=== PATIENT | female | born 1990 | race African-American/Black ===

== ENCOUNTER 2016-07-07 13:10 | Emergency (ER) | payer OTHER ==
[~2016-07-07] VITALS: Ht 160 cm; Wt 63.5 kg
[~2016-07-07 13:10] MED LIST: CIPR500T94 PO; HYDR-971 PO; PENI500T PO; PROM25TA10 PO; TRAM-29 PO
[2016-07-07 13:20] VITALS: BP 112/60
[2016-07-07] MEDS ORDERED: HYDR-971 PO (13:48)
[2016-07-07] MEDS ORDERED: AMOX500C PO (13:48)
--- NOTE | 2016-07-07 13:48 | PHYS DOC ---
Past Medical History Past Medical History: Other Additional Past Medical Histor: ULCERATIVE COLITIS, Dental Caries Past Surgical History: , Tubal ligation Additional Past Surgical Histo: X 3 Alcohol Use: None Drug Use: Marijuana Adult General Chief Complaint Chief Complaint: DENTAL PROBLEM [facility] HPI Patient is a 25 year old female presents emergency room with complaint of jaw pain and swelling is been ongoing for greater than 1 week. Patient states that she went to the dentist office for follow-up and was advised to come to the emergency department since she's fully open her mouth. Patient states that the dentist advised her to come to the ER for further evaluation and then to return to the dental office by 2 PM after she received a prescription for antibiotics and pain medicine. Review of Systems Review of Systems Constitutional: Denies fever or chills [] Eyes: Denies change in visual acuity, redness, or eye pain [] HENT: Denies nasal congestion or sore throat [] Respiratory: Denies cough or shortness of breath [] Cardiovascular: No additional information not addressed in HPI [] GI: Denies abdominal pain, nausea, vomiting, bloody stools or diarrhea [] : Denies dysuria or hematuria [] Musculoskeletal: Denies back pain or joint pain [] Integument: Denies rash or skin lesions [] Neurologic: Denies headache, focal weakness or sensory changes [] Endocrine: Denies polyuria or polydipsia [] Allergies Allergies Allergies Coded Allergies Type Severity Reaction Last Updated Verified No Known Drug Allergies 09/10/13 No Physical Exam Physical Exam Constitutional: Well developed, well nourished, no acute distress, non-toxic appearance. [] HENT: Normocephalic, atraumatic, bilateral external ears normal, oropharynx moist, no oral exudates, nose normal. There is no hot potato speech or trismus. Posterior oropharynx is without erythema, tonsillar swelling, exudate or plaques , peritonsillar swelling or uvular deviation. Patient does have gingival inflammation to the left mandibular gum line without gingival abscess. She does have dental caries and very stages of decay. Eyes: PERRLA, EOMI, conjunctiva normal, no discharge. [] Neck: Normal range of motion, no tenderness, supple, no stridor. [] Cardiovascular:Heart rate regular rhythm, no murmur [] Lungs & Thorax: Bilateral breath sounds clear to auscultation [] Abdomen: Bowel sounds normal, soft, no tenderness, no masses, no pulsatile masses. [] Skin: Warm, dry, no erythema, no rash. [] Back: No tenderness, no CVA tenderness. [] Extremities: No tenderness, no cyanosis, no clubbing, ROM intact, no edema. [] Neurologic: Alert and oriented X 3, normal motor function, normal sensory function, no focal deficits noted. [] Psychologic: Affect normal, judgement normal, mood normal. [] Current Patient Data Vital Signs Vital Signs Date Time Temp Pulse Resp B/P Pulse Ox O2 Delivery O2 Flow Rate FiO2 07/07/16 13:20 98.0 77 19 99 Room Air 98.0 EKG EKG [] Radiology/Procedures Radiology/Procedures [] Course & Med Decision Making Course & Med Decision Making Pertinent Labs and Imaging studies reviewed. (See chart for details) [] Dragon Disclaimer Dragon Disclaimer This electronic medical record was generated, in whole or in part, using a voice recognition dictation system. Departure Departure Impression: Primary Impression: Dental caries Disposition: 01 HOME, SELF-CARE Condition: GOOD Referrals: NO PCP (PCP) Patient Instructions: Dental Caries-Brief Additional Instructions: 1. There is no evidence of peritonsillar abscess. 2. Take the medication as prescribed. 3. Review these discharge instructions for self-care and reasons to return to the emergency department. 4. Return to see the dentist for management of your ongoing dental issues. Scripts Amoxicillin 500 Mg Capsule1 Cap PO TID #30 CAP Prov:MIRNA PONCE 07/07/16 Hydrocodone/Apap 5-325 ([place] 5-325 Tablet)1 Each Tablet1 Tab PO PRN Q6HRS PRN PAIN #10 TAB Prov:MIRNA PONCE 07/07/16 MIRNA PONCE Jul 07, 2016 13:48
== END 2016-07-07 13:50 | disposition home or self-care (01) ==
LOC: ER 13:10
DX: K02.9 Dental caries, unspecified (principal); F12.10 Cannabis abuse, uncomplicated
CPT/HCPCS: 99283

== ENCOUNTER 2016-09-25 13:37 | Inpatient (IN) | payer OTHER ==
[~2016-09-25] VITALS: Ht 160 cm; Wt 65.3 kg
[~2016-09-25 13:37] MED LIST changes: +AMOX500C PO; +AMOX875T PO; +FLUC150T PO; +TOBR5DRO6 OD
[2016-09-25] MEDS ORDERED: IV NORMAL SALINE 1000ML BAG 1,000 ML IV SCH ×2 (14:17→18:06)
[2016-09-25] MEDS ORDERED: KETOROLAC 15 MG/ML VIAL. IV ONE (14:30)
[2016-09-25] MEDS ORDERED: ONDANSETRON PF 4 MG/2 ML VIAL. IV ONE (14:30)
[2016-09-25 15:08] LABS: BILIRUBIN,URINE SMALL (NEG); GLUCOSE,URINE NEGATIVE (NEG); NITRITE,URINE POSITIVE (NEG); PH,URINE 6.5; PROTEIN,URINE 30 mg/dL (NEG-TRACE); UROBILINOGEN,URINE 0.2 mg/dL (0.2 mg/dL)
[2016-09-25 15:13] LABS: BARBITURATES NEG (NEG); BENZODIAZEPINES NEG (NEG); CANNABINOIDS POS (NEG); COCAINE NEG (NEG); ETHANOL, URINE NEG (NEG); METHADONE NEG (NEG); OPIATES NEG (NEG); PHENCYCLIDINE NEG (NEG)
[2016-09-25 15:14] LABS: BACTERIA,URINE MANY /HPF (0-FEW); RBC,URINE 0 /HPF (0-2); SQUAMOUS EPITHELIAL CELL,UR MANY /LPF
[2016-09-25] MEDS ORDERED: HALOPERIDOL LACTATE 5 MG/ML VIAL. IVP ONE (15:30)
[2016-09-25 16:06] LABS: BASO % 1 % (0-3); EOS % 0 % (0-3); HEMATOCRIT 34.6 % (36.0-47.0); HEMOGLOBIN 10.7 g/dL (12.0-15.5); LYMPH # 0.9 x10^3/uL (1.0-4.8); LYMPH % 16 % (24-48); MEAN CORPUSCULAR HEMOGLOBIN 26 pg (25-35); MEAN CORPUSCULAR HGB CONC 31 g/dL (31-37); MEAN CORPUSCULAR VOLUME 85 fL (79-100); MONO % 3 % (0-9); NEUT % 80 % (31-73); PLATELET COUNT 241 x10^3/uL (140-400); RED BLOOD COUNT 4.07 x10^6/uL (3.50-5.40); RED CELL DISTRIBUTION WIDTH 16.8 % (11.5-14.5); WHITE BLOOD COUNT 5.4 x10^3/uL (4.0-11.0)
[2016-09-25 16:24] LABS: CALCIUM 9.1 mg/dL (8.5-10.1); CREATININE 0.8 mg/dL (0.6-1.0); GFR 104.1; TOTAL BILIRUBIN 0.4 mg/dL (0.2-1.0); TOTAL PROTEIN 7.9 g/dL (6.4-8.2)
[2016-09-25 16:27] LABS: POTASSIUM 2.8 mmol/L (3.5-5.1)
--- NOTE | 2016-09-25 16:29 | ED.ADGEN ---
Past Medical History Past Medical History: Other Additional Past Medical Histor: ULCERATIVE COLITIS, Dental Caries Past Surgical History: , Tubal ligation Additional Past Surgical Histo: X 3 Alcohol Use: None Drug Use: Marijuana Adult General Chief Complaint Chief Complaint: ABDOMINAL PAIN HPI HPI Patient is a 25 year old woman, history of ulcerative colitis, who presents the emergency department with a complaint of abdominal pain over the past 2 days. States she is experiencing abdominal cramping, nausea, vomiting and diarrhea. Denies any urinary complaints, denies any possibility of . No discharge or drainage from the vagina. Multiple episodes of loose watery stool. No blood in stool or emesis. Food and fluid noted, patient is diaphoretic upon arrival to the emergency department, complaining of significant cramping abdominal pain. Has not taken any medications at home for her symptoms. Denies any drugs or alcohol, states that she does smoke cigarettes. Denies any weakness emesis or tingling, any similar symptoms previously. Review of Systems Review of Systems Constitutional: Denies fever or chills. [] Eyes: Denies change in visual acuity. [] HENT: Denies nasal congestion or sore throat. [] Respiratory: Denies cough or shortness of breath. [] Cardiovascular: Denies chest pain or edema. [] GI: Denies abdominal pain, nausea, vomiting, bloody stools or diarrhea. [] : Denies dysuria. [] Musculoskeletal: Denies back pain or joint pain. [] Integument: Denies rash. [] Neurologic: Denies headache, focal weakness or sensory changes. [] Endocrine: Denies polyuria or polydipsia. [] Lymphatic: Denies swollen glands. [] Psychiatric: Denies depression or anxiety. [] Current Medications Current Medications Current Medications Medications (Trade) Dose Ordered Sig/Sharon Start Time Stop Time Status Last Admin Dose Admin Ceftriaxone Sodium (Rocephin 1gm Ivpb For Omni) 50 ml @ 100 mls/hr 1X ONCE 09/25/16 17:15 09/25/16 17:44 DC Haloperidol Lactate (Haldol) 5 mg 1X ONCE 09/25/16 15:30 09/25/16 15:31 DC 09/25/16 15:39 5 MG Info 1 each 1 each PRN DAILY PRN 09/25/16 17:15 4/11/17 17:14 Iohexol (Omnipaque 300 Mg/ml) 75 ml 1X ONCE 09/25/16 17:00 09/25/16 17:04 DC 09/25/16 17:50 75 ML Ketorolac Tromethamine (Toradol) 10 mg 1X ONCE 09/25/16 14:30 09/25/16 14:31 DC 09/25/16 14:44 10 MG Ondansetron HCl (Zofran) 4 mg 1X ONCE 09/25/16 14:30 09/25/16 14:31 DC 09/25/16 14:44 4 MG Potassium Chloride 40 meq 40 meq 1X ONCE 09/25/16 16:30 09/25/16 16:34 DC 09/25/16 17:03 40 MEQ Potassium Chloride/Dextrose/ Sod Cl (KCl 40 Meq In D5%-1/2ns Iv Racquel) 1,000 ml @ 80 mls/hr 1X ONCE 09/25/16 16:45 09/26/16 05:14 09/25/16 17:04 80 MLS/HR Sodium Chloride 1,000 ml @ 1,000 mls/hr 1X ONCE 09/25/16 16:45 09/25/16 17:44 DC 09/25/16 17:04 1,000 MLS/HR Sodium Chloride (Iv Sodium Chloride 0.9% 1000ml Bag) 1,000 ml @ 1,000 mls/hr Q1H 09/25/16 14:17 09/25/16 15:16 DC 09/25/16 14:45 1,000 MLS/HR Allergies Allergies Allergies Coded Allergies Type Severity Reaction Last Updated Verified No Known Drug Allergies 09/10/13 No Physical Exam Physical Exam Constitutional: Well developed, well nourished, diaphoretic, appears uncomfortable. Vomiting clear fluid in the emergency department. HENT: Normocephalic, atraumatic, bilateral external ears normal, oropharynx moist, no oral exudates, nose normal. [] Eyes: PERRLA, EOMI, conjunctiva normal, no discharge. [] Neck: Normal range of motion, no tenderness, supple, no stridor. [] Cardiovascular:Heart rate regular rhythm, no murmur, S1, S2, no rubs or gallops. [] Lungs & Thorax: Bilateral breath sounds clear to auscultation, no wheezing, rhonchi, rales. No chest or crepitus or tenderness. [] Abdomen: Bowel sounds normal, soft, tenderness palpation in the epigastric region, periumbilical and lower quadrants, with active bowel sounds, no rebound , rigidity, no guarding, no masses, no pulsatile masses. [] Skin: Warm, patient diaphoretic, appears uncomfortable, no erythema, no rash. [ ] Back: No tenderness, no CVA tenderness. [] Extremities: No tenderness, no cyanosis, no clubbing, ROM intact, no edema. [] Neurologic: Alert and oriented X 3, normal motor function, normal sensory function, no focal deficits noted. [] Psychologic: Affect normal, judgement normal, mood normal. [] Current Patient Data Vital Signs Vital Signs Date Time Temp Pulse Resp B/P Pulse Ox O2 Delivery O2 Flow Rate FiO2 09/25/16 13:41 98.2 60 22 116/61 100 Room Air 98.2 Lab Values Laboratory Tests Test 09/25/16 13:50 09/25/16 15:55 Urine Collection Type Unknown Urine Color Maria D Urine Clarity Cloudy Urine pH 6.5 Urine Specific [place] >=1.030 Urine Protein 30mg/dL (NEG-TRACE) Urine Glucose (UA) Negativemg/dL (NEG) Urine Ketones (Stick) Tracemg/dL (NEG) Urine Blood Negative (NEG) Urine Nitrite Positive (NEG) Urine Bilirubin Small (NEG) Urine Urobilinogen Dipstick 0.2mg/dL (0.2 mg/dL) Urine Leukocyte Esterase Small (NEG) Urine RBC 0/HPF (0-2) Urine WBC 5-10/HPF (0-4) Urine Squamous Epithelial Cells Many/LPF Urine Bacteria Many/HPF (0-FEW) Urine Mucus Marked/LPF Urine Opiates Screen Neg (NEG) Urine Methadone Screen Neg (NEG) Urine Barbiturates Neg (NEG) Urine Phencyclidine Screen Neg (NEG) Urine Amphetamine/Methamphetamine Neg (NEG) Urine Benzodiazepines Screen Neg (NEG) Urine Cocaine Screen Neg (NEG) Urine Cannabinoids Screen Pos (NEG) Urine Ethyl Alcohol Neg (NEG) White Blood Count 5.4x10^3/uL (4.0-11.0) Red Blood Count 4.07x10^6/uL (3.50-5.40) Hemoglobin 10.7g/dL (12.0-15.5) L Hematocrit 34.6% (36.0-47.0) L Mean Corpuscular Volume 85fL (79-100) Mean Corpuscular Hemoglobin 26pg (25-35) Mean Corpuscular Hemoglobin Concent 31g/dL (31-37) Red Cell Distribution Width 16.8% (11.5-14.5) H Platelet Count 241x10^3/uL (140-400) Neutrophils (%) (Auto) 80% (31-73) H Lymphocytes (%) (Auto) 16% (24-48) L Monocytes (%) (Auto) 3% (0-9) Eosinophils (%) (Auto) 0% (0-3) Basophils (%) (Auto) 1% (0-3) Neutrophils # (Auto) 4.3x10^3uL (1.8-7.7) Lymphocytes # (Auto) 0.9x10^3/uL (1.0-4.8) L Monocytes # (Auto) 0.2x10^3/uL (0.0-1.1) Eosinophils # (Auto) 0.0x10^3/uL (0.0-0.7) Basophils # (Auto) 0.0x10^3/uL (0.0-0.2) Sodium Level 142mmol/L (136-145) Potassium Level 2.8mmol/L (3.5-5.1) *L Chloride Level 107mmol/L (98-107) Carbon Dioxide Level 20mmol/L (21-32) L Anion Gap 15 (6-14) H Blood Urea Nitrogen 5mg/dL (7-20) L Creatinine 0.8mg/dL (0.6-1.0) Estimated GFR (Cockcroft-Gault) 104.1 BUN/Creatinine Ratio 6 (6-20) Glucose Level 128mg/dL (70-99) H Lactic Acid Level 3.6mmol/L (0.4-2.0) H Calcium Level 9.1mg/dL (8.5-10.1) Total Bilirubin 0.4mg/dL (0.2-1.0) Aspartate Amino Transferase (AST) 16U/L (15-37) Alanine Aminotransferase (ALT) 18U/L (14-59) Alkaline Phosphatase 54U/L (46-116) Total Protein 7.9g/dL (6.4-8.2) Albumin 4.0g/dL (3.4-5.0) Albumin/Globulin Ratio 1.0 (1.0-1.7) Lipase 68U/L (73-393) L Laboratory Tests 09/25/16 15:55 Laboratory Tests 09/25/16 15:55 EKG EKG EC: Sinus rhythm, heart rate 53 beats minute, QTC of 372, OK 180, QRS of 82, mild baseline artifact noted, no ST elevations or depressions, no evidence of acute ST abnormalities. As interpreted by me. Radiology/Procedures Radiology/Procedures [] [facility] [address] [place] [address] IMAGING REPORT Signed PATIENT: VLAD BOTELLO ACCOUNT: [id number] : 1990 LOCATION: [address] [place] [address] AGE: 25 SEX: F EXAM STATUS: ADM IN ORD. PHYSICIAN: ANIBAL ALMANZA DO REASON: abd pain/n/v/d PROCEDURE: CT ABD PELV W/ IV CONTRST ONLY PROCEDURE CT abdomen and pelvis with IV contrast 09/25/2016. HISTORY Pain with nausea, vomiting and diarrhea. TECHNIQUE CT images were made through the abdomen and pelvis using an infusion of 75 milliliters an Omnipaque 300. Exposure: One or more of the following individualized dose reduction techniques were utilized for this exam: 1. Automated exposure control. 2. Adjustment of the mA and/or kV according to patient size. 3. Use of iterative reconstruction technique. COMPARISON 07/15/2013. FINDINGS The lung bases are clear. The liver and spleen are homogeneous in density and normal in configuration. Both kidneys enhance with contrast. There is no apparent mass or obstruction. The adrenal glands and pancreas appear normal. No retroperitoneal or mesenteric adenopathy is seen. There is no apparent abdominal soft tissue mass or obvious inflammatory process. Evaluation is limited some by lack of intra-abdominal fat and lack of oral contrast. Images through the pelvis show no apparent abnormality of the distal ureters or bladder. No pelvic or inguinal adenopathy is seen. There is probably a small left ovarian cyst. The uterus and adnexal structures otherwise appear normal for age. There is a trace of free fluid in the cul-de-sac on the right. There is no separate pelvic mass or clear-cut inflammatory process. The appendix is not clearly discerned. There are no obvious pericecal inflammatory changes, although evaluation is limited by the lack of adjacent fat. IMPRESSION Minimal free fluid in the pelvis, likely physiologic. No identified acute abnormality, with limitations of the exam as discussed above. Electronically signed by: Regis Anderson (Sep 25, 2016 18:10:01) DICTATED and SIGNED BY: REGIS ANDERSON Jr, MD DATE: 09/25/161809 CC: ANIBAL ALMANZA DO; NO PCP; EMY ASKEW MD ~ Course & Med Decision Making Course & Med Decision Making Pertinent Labs and Imaging studies reviewed. (See chart for details) Patient with repetitive episodes of vomiting in the ED, diarrhea, and significant diaphoresis stated. Laboratory studies reveal a potassium of 2.8, and a lactic acidosis of 3.6. Urinalysis is negative for , positive for nitrates, bacteria, and does BCs. Patient is receiving IV fluids in the emergency department, although antiemetics and pain medication. Is agreeable to receiving imaging of the abdomen, along with oral and IV repletion of her potassium. Patient received Haldol in addition to Zofran and Toradol in the ED, with improvement of her symptoms. Delay in receiving laboratory studies, as there is difficult placing patient's IV access. Stool culture sent, including C. difficile, although patient has no history with recent exposures or inability use. Patient initiated on ceftriaxone for urinary findings. Symptoms improved after receiving medications as stated, but remained very nauseous, was able tolerate by mouth potassium repletion. Is continuing to receive IV repletion. CT of abdomen and pelvis reveals small amount of free fluid considered physiologic in the abdomen, no evidence of inflammation obstruction or other concerning findings. Did discuss findings as above patient, she is agreeable for admission to the hospital for potassium repletion, symptom management and monitoring. Findings as above discussed with Dr. Askew of internal medicine, patient accepted to her service as a full admission to the medical surgical floor, with plan as above. Bridge orders entered per discussion. Dragon Disclaimer Dragon Disclaimer This electronic medical record was generated, in whole or in part, using a voice recognition dictation system. Departure Impression: Primary Impression: Urinary tract infection Additional Impressions: Abdominal pain Lactic acidosis Dehydration Disposition: ADMITTED INPATIENT Admitting Physician: Emy Askew Condition: IMPROVED Problem Qualifiers ANIBAL ALMANZA DO Sep 25, 2016 16:29
[2016-09-25] MEDS ORDERED: POTASSIUM CHLORIDE 20 MEQ/15 ML ORAL LIQUID. PO ONE (16:30)
[2016-09-25] MEDS ORDERED: POTASSIUM CL 40MEQ D5-0.45NACL 1,000 ML IV ONE (16:45)
[2016-09-25] MEDS ORDERED: IV NORMAL SALINE 1000ML BAG 1,000 ML IV ONE (16:45)
[2016-09-25] MEDS ORDERED: IOHEXOL 300 MG/ML 75 ML VIAL IV ONE (17:00)
[2016-09-25] MEDS ORDERED: CONTRAST GIVEN MC PRN (17:15)
[2016-09-25] MEDS ORDERED: CEFTRIAXONE 1GM IVPB FOR OMNI 50 ML IV ONE (17:15)
[2016-09-25] MEDS ORDERED: FENTANYL PF 100 MCG/2 ML VIAL. IV PRN ×2 (17:30→18:00)
[2016-09-25] MEDS ORDERED: LORAZEPAM 1 MG TABLET. PO PRN (18:00)
[2016-09-25] MEDS ORDERED: ONDANSETRON PF 4 MG/2 ML VIAL. IV PRN ×2 (18:00→18:15)
[2016-09-25] MEDS ORDERED: DIPHENHYDRAMINE HCL 25 MG CAPSULE PO PRN (18:00)
[2016-09-25] MEDS ORDERED: LORAZEPAM 2 MG/ML VIAL. IV PRN (18:00)
[2016-09-25] MEDS ORDERED: PROCHLORPERAZINE 10 MG/2 ML VIAL. IV PRN (18:00)
--- NOTE | 2016-09-25 18:11 | RAD ---
PROCEDURE CT abdomen and pelvis with IV contrast 09/25/2016. HISTORY Pain with nausea, vomiting and diarrhea. TECHNIQUE CT images were made through the abdomen and pelvis using an infusion of 75 milliliters an Omnipaque 300. Exposure: One or more of the following individualized dose reduction techniques were utilized for this exam: 1. Automated exposure control. 2. Adjustment of the mA and/or kV according to patient size. 3. Use of iterative reconstruction technique. COMPARISON 07/15/2013. FINDINGS The lung bases are clear. The liver and spleen are homogeneous in density and normal in configuration. Both kidneys enhance with contrast. There is no apparent mass or obstruction. The adrenal glands and pancreas appear normal. No retroperitoneal or mesenteric adenopathy is seen. There is no apparent abdominal soft tissue mass or obvious inflammatory process. Evaluation is limited some by lack of intra-abdominal fat and lack of oral contrast. Images through the pelvis show no apparent abnormality of the distal ureters or bladder. No pelvic or inguinal adenopathy is seen. There is probably a small left ovarian cyst. The uterus and adnexal structures otherwise appear normal for age. There is a trace of free fluid in the cul-de-sac on the right. There is no separate pelvic mass or clear-cut inflammatory process. The appendix is not clearly discerned. There are no obvious pericecal inflammatory changes, although evaluation is limited by the lack of adjacent fat. IMPRESSION Minimal free fluid in the pelvis, likely physiologic. No identified acute abnormality, with limitations of the exam as discussed above. Electronically signed by: Samuel Anderson (Sep 25, 2016 18:10:01)
[2016-09-25] MEDS ORDERED: ACETAMINOPHEN 325 MG TABLET. PO PRN (18:15)
[2016-09-25] MEDS: MORPHINE SULFATE 4 MG/ML DISP.SYRIN. IV PRN ×2 (18:27→22:41)
[2016-09-25] MEDS: IV NORMAL SALINE 1000ML BAG 1,000 ML IV SCH (19:00)
[2016-09-25 20:00] VITALS: BP 138/87
[2016-09-25 23:00] VITALS: BP 141/82
[2016-09-26 03:00] VITALS: BP 139/81
[2016-09-26] MEDS: MORPHINE SULFATE 4 MG/ML DISP.SYRIN. IV PRN (04:39)
[2016-09-26] MEDS: IV NORMAL SALINE 1000ML BAG 1,000 ML IV SCH (06:08)
--- NOTE | 2016-09-26 06:11 | EKG ---
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
[2016-09-26 07:15] VITALS: BP 127/70
[2016-09-26 07:38] LABS: CALCIUM 9.2 mg/dL (8.5-10.1); CREATININE 0.8 mg/dL (0.6-1.0); GFR 103.3; POTASSIUM 3.2 mmol/L (3.5-5.1)
[2016-09-26] MEDS ORDERED: hydrALAZINE 20 MG/ML VIAL. IVP PRN (09:15)
[2016-09-26] MEDS ORDERED: ALBUTEROL SULFATE 2.5 MG/3 ML NEBU. NEB PRN (09:15)
[2016-09-26] MEDS ORDERED: ACETAMINOPHEN 325 MG TABLET. PO PRN (09:15)
[2016-09-26] MEDS ORDERED: ONDANSETRON PF 4 MG/2 ML VIAL. IV PRN (09:15)
--- NOTE | 2016-09-26 09:54 | RAD ---
Abdomen series with chest, 3 views, 09/25/2016: History: Abdominal pain There is only a small amount of gas in the GI tract. No dilated bowel loops are seen. No free air is evident in the abdomen. A lower pelvic calcifications on the left is probably a phlebolith. The heart size is normal. The lungs are clear. There is no evidence of pleural fluid. IMPRESSION: No acute abdominal abnormality is detected.
[2016-09-26 10:45] VITALS: BP 138/81
--- NOTE | 2016-09-26 10:47 | HP ---
ADMIT DATE: 09/26/2016 CHIEF COMPLAINT: Abdominal pain, diarrhea, nausea, vomiting. HISTORY OF PRESENT ILLNESS: A 26-year-old -[place] female with prior history of ulcerative colitis, presented to the ER with complaints of abdominal pain, nausea, vomiting and diarrhea for nearly 2 days. Initially symptoms started like vomiting, later she developed diarrhea too. She denies any sick contacts or travel history and also denies any possibility of . She was diagnosed with ulcerative colitis at [facility]; however, she was not taking any medications. After coming to the hospital, her nausea has been improving; however, the patient is still having watery bowel movements. She denies any fever, chills or denies any substance abuse. She used to smoke cigarettes, but she stopped after she was diagnosed with ulcerative colitis. PAST MEDICAL HISTORY: Ulcerative colitis, dental caries. PAST SURGICAL HISTORY: and tubal ligation. PERSONAL HISTORY: No smoking, no alcohol, THC sometimes. FAMILY HISTORY: No ulcerative colitis in the family. ALLERGIES: NKDA. REVIEW OF SYSTEMS: CONSTITUTIONAL: No fever or chills. EYES: No recent vision changes. SKIN: No rash or itching. CARDIOVASCULAR: No chest pain, syncope, palpitations or edema. RESPIRATORY: No shortness of breath, cough. GASTROINTESTINAL: Nausea, vomiting and diarrhea. Denies any hematochezia or hematemesis. NEUROLOGICAL: No headache, paralysis. ENDOCRINOLOGIC: No cold or heat intolerance. GENITOURINARY: No burning with urination, no urgency. MUSCULOSKELETAL: No back pain or joint pain. LYMPHATICS: No enlarged nodes. PSYCHIATRIC: No anxiety or depression. PHYSICAL EXAM: VITAL SIGNS: Temperature 98.2, pulse is 61, blood pressure 141/82 and pulse ox 100% on room air. GENERAL: No apparent distress. HEENT: Head normocephalic, atraumatic. NECK: Supple. LUNGS: Clear to auscultation. HEART: Regular rate and rhythm; S1, S2 present; pulses intact. ABDOMEN: Soft, nontender. No organomegaly. Positive bowel sounds. EXTREMITIES: No cyanosis or edema. NEUROLOGIC: Normal speech and normal tone; alert and oriented. PSYCHIATRIC: Normal affect, normal mood. SKIN: No ulceration. LABORATORY DATA: WBC 5.4, hemoglobin 10.7, MCHC 71, platelets 241, ESR is 10. Chemistry: Sodium is 142, potassium is 2.8, down to 3.2; carbon dioxide 20, anion gap 15, BUN is 5 and glucose 178, lipase 68. Urine clarity cloudy, pH is 6.5, specific gravity more than 1.030, glucose negative, ketones trace, nitrites positive, urobilinogen 0.2, esterase is small. Toxicology positive for THC, cannabinoids. IMAGING STUDIES: Abdomen and pelvis CT showed minimal free fluid in the pelvis, likely physiologic. No evidence for acute abnormality or limitations of the exam noted. ASSESSMENT AND PLAN: 1. Nausea, vomiting, diarrhea and abdominal pain, unclear etiology. 2. Prior history of ulcerative colitis. 3. Hypokalemia. PLAN: 1. She has been admitted to the hospital for IV hydration and electrolyte replacement. Currently, the patient's symptoms are improving with symptomatic treatment. 2. She has been placed on Rocephin for urinary tract infection. Continue IV hydration at 125 mL per hour. I will replace potassium today. 3. Pain control with IV morphine 4 mg q. 2 hours as needed. 4. If the patient's symptoms did not improve, I will consult Gastroenterology for further recommendations. 5. DVT prophylaxis with PAS stockings. WILLIAN HUITRON MD DR: MICHAELA/jose JOB#: [id number] / [id number] [place]
[2016-09-26 10:58] LABS: BASO % 0 % (0-3); EOS % 0 % (0-3); HEMATOCRIT 37.4 % (36.0-47.0); HEMOGLOBIN 11.9 g/dL (12.0-15.5); LYMPH # 1.4 x10^3/uL (1.0-4.8); LYMPH % 15 % (24-48); MEAN CORPUSCULAR HEMOGLOBIN 26 pg (25-35); MEAN CORPUSCULAR HGB CONC 32 g/dL (31-37); MEAN CORPUSCULAR VOLUME 82 fL (79-100); MONO % 3 % (0-9); NEUT % 82 % (31-73); PLATELET COUNT 272 x10^3/uL (140-400); RED BLOOD COUNT 4.54 x10^6/uL (3.50-5.40); RED CELL DISTRIBUTION WIDTH 16.8 % (11.5-14.5); WHITE BLOOD COUNT 9.4 x10^3/uL (4.0-11.0)
[2016-09-26] MEDS ORDERED: POTASSIUM CHLORIDE 20 MEQ TABLET.ER. PO ONE (11:00)
--- NOTE | 2016-09-26 11:11 | PDOC2 ---
GI CONSULT Reason For Consult: UC, diarrhea, abdominal pain HPI: HPI: 26 y/o AA female who reports feeling ill since 09/23/16. No precipitating events or sick contacts. Began w/ foul-smelling belches, progressed to heartburn. Had some abd pain which has resolved. Also is having diarrhea (described as watery "with frandy"). Feeling better today, wants to have a birthday libertarian while at the hospital. Reports previous EGD and colonoscopy 5-6 years ago at for vomiting, reports diagnosed w/ ulcerative colitis. Took "green pills" for a short period of time. Has not followed up w/ GI or continued any GI- related meds since then. Normal bowel pattern is 1 formed stool every 3 days. H/o anemia w/ heavy menstrual periods every month lasting 8 days. Denies hematemesis, melena, hematochezia. No weight loss. No NSAIDs. Does seem to have a h/o dyspepsia. Labs significant for normal WBC, Hgb 10.7, RDW 16.8, K+ 2.8 (now 3.2), lactic acid 3.6 (now 2.3). CT w/ minimal free fluid in the pelvis. On Rocephin for UTI. Did take another antibiotic ~1 month ago for dental infection. C Diff in process. PMH: PMH: x3, tubal ligation FH: Family History: No pertinent hx (denies GI cancers, IBD) Social History: Smoke: <1 pack per day ALCOHOL: none Drugs: Marijuana ROS: GEN: Denies fevers, chills, sweats HEENT: Denies blurred vision, sore throat CV: Denies chest pain RESP: Denies shortness of air, cough GI: Per HPI : Denies hematuria, dysuria ENDO: Denies weight changes NEURO: Denies confusion, dizziness MSK: Denies weakness, joint pain/swelling SKIN: Denies jaundice, pruritus VItals: Vitals: Vital Signs Date Time Temp Pulse Resp B/P Pulse Ox O2 Delivery O2 Flow Rate FiO2 09/26/16 08:00 Room Air 09/26/16 07:15 98.9 76 16 127/70 100 98.9 Labs: Labs: Laboratory Tests Test 09/25/16 12:55 09/25/16 13:50 09/25/16 15:55 09/26/16 07:05 Bedside Urine HCG, Qualitative Hcg negative (Negative) Urine Collection Type Unknown Urine Color Maria D Urine Clarity Cloudy Urine pH 6.5 Urine Specific [place] >=1.030 Urine Protein 30mg/dL (NEG-TRACE) Urine Glucose (UA) Negativemg/dL (NEG) Urine Ketones (Stick) Tracemg/dL (NEG) Urine Blood Negative (NEG) Urine Nitrite Positive (NEG) Urine Bilirubin Small (NEG) Urine Urobilinogen Dipstick 0.2mg/dL (0.2 mg/dL) Urine Leukocyte Esterase Small (NEG) Urine RBC 0/HPF (0-2) Urine WBC 5-10/HPF (0-4) Urine Squamous Epithelial Cells Many/LPF Urine Bacteria Many/HPF (0-FEW) Urine Mucus Marked/LPF Urine Opiates Screen Neg (NEG) Urine Methadone Screen Neg (NEG) Urine Barbiturates Neg (NEG) Urine Phencyclidine Screen Neg (NEG) Urine Amphetamine/Methamphetamine Neg (NEG) Urine Benzodiazepines Screen Neg (NEG) Urine Cocaine Screen Neg (NEG) Urine Cannabinoids Screen Pos (NEG) Urine Ethyl Alcohol Neg (NEG) White Blood Count 5.4x10^3/uL (4.0-11.0) Red Blood Count 4.07x10^6/uL (3.50-5.40) Hemoglobin 10.7g/dL (12.0-15.5) Hematocrit 34.6% (36.0-47.0) Mean Corpuscular Volume 85fL (79-100) Mean Corpuscular Hemoglobin 26pg (25-35) Mean Corpuscular Hemoglobin Concent 31g/dL (31-37) Red Cell Distribution Width 16.8% (11.5-14.5) Platelet Count 241x10^3/uL (140-400) Neutrophils (%) (Auto) 80% (31-73) Lymphocytes (%) (Auto) 16% (24-48) Monocytes (%) (Auto) 3% (0-9) Eosinophils (%) (Auto) 0% (0-3) Basophils (%) (Auto) 1% (0-3) Neutrophils # (Auto) 4.3x10^3uL (1.8-7.7) Lymphocytes # (Auto) 0.9x10^3/uL (1.0-4.8) Monocytes # (Auto) 0.2x10^3/uL (0.0-1.1) Eosinophils # (Auto) 0.0x10^3/uL (0.0-0.7) Basophils # (Auto) 0.0x10^3/uL (0.0-0.2) Erythrocyte Sedimentation Rate 10 (0-25) Sodium Level 142mmol/L (136-145) 140mmol/L (136-145) Potassium Level 2.8mmol/L (3.5-5.1) 3.2mmol/L (3.5-5.1) Chloride Level 107mmol/L (98-107) 107mmol/L (98-107) Carbon Dioxide Level 20mmol/L (21-32) 21mmol/L (21-32) Anion Gap 15 (6-14) 12 (6-14) Blood Urea Nitrogen 5mg/dL (7-20) 3mg/dL (7-20) Creatinine 0.8mg/dL (0.6-1.0) 0.8mg/dL (0.6-1.0) Estimated GFR (Cockcroft-Gault) 104.1 103.3 BUN/Creatinine Ratio 6 (6-20) Glucose Level 128mg/dL (70-99) 117mg/dL (70-99) Lactic Acid Level 3.6mmol/L (0.4-2.0) 2.3mmol/L (0.4-2.0) Calcium Level 9.1mg/dL (8.5-10.1) 9.2mg/dL (8.5-10.1) Total Bilirubin 0.4mg/dL (0.2-1.0) Aspartate Amino Transf (AST/SGOT) 16U/L (15-37) Alanine Aminotransferase (ALT/SGPT) 18U/L (14-59) Alkaline Phosphatase 54U/L (46-116) Total Protein 7.9g/dL (6.4-8.2) Albumin 4.0g/dL (3.4-5.0) Albumin/Globulin Ratio 1.0 (1.0-1.7) Lipase 68U/L (73-393) Allergies: Coded Allergies: No Known Drug Allergies (Unverified , 09/10/13) Medications: Current Medications Medications (Trade) Dose Ordered Sig/Sharon Route PRN Reason Start Time Stop Time Status Last Admin Dose Admin Sodium Chloride (Iv Sodium Chloride 0.9% 1000ml Bag) 1,000 ml @ 1,000 mls/hr Q1H IV 09/25/16 14:17 09/25/16 15:16 DC 09/25/16 14:45 Ondansetron HCl (Zofran) 4 mg 1X ONCE IV 09/25/16 14:30 09/25/16 14:31 DC 09/25/16 14:44 Ketorolac Tromethamine (Toradol) 10 mg 1X ONCE IV 09/25/16 14:30 09/25/16 14:31 DC 09/25/16 14:44 Haloperidol Lactate (Haldol) 5 mg 1X ONCE IVP 09/25/16 15:30 09/25/16 15:31 DC 09/25/16 15:39 Potassium Chloride 40 meq 40 meq 1X ONCE PO 09/25/16 16:30 09/25/16 16:34 DC 09/25/16 17:03 Sodium Chloride 1,000 ml @ 1,000 mls/hr 1X ONCE IV 09/25/16 16:45 09/25/16 17:44 DC 09/25/16 17:04 Potassium Chloride/Dextrose/ Sod Cl (KCl 40 Meq In D5%-1/2ns Iv Racquel) 1,000 ml @ 80 mls/hr 1X ONCE IV 09/25/16 16:45 09/26/16 05:14 DC 09/25/16 17:04 Iohexol 75 ml 75 ml 1X ONCE IV 09/25/16 17:00 09/25/16 17:04 DC 09/25/16 17:50 Ceftriaxone Sodium 50 ml @ 100 mls/hr 1X ONCE IV 09/25/16 17:15 09/25/16 17:44 DC 09/25/16 21:15 Sodium Chloride (Iv Sodium Chloride 0.9% 1000ml Bag) 1,000 ml @ 125 mls/hr Q8H IV 09/25/16 19:00 09/26/16 06:08 Ondansetron HCl (Zofran) 4 mg PRN Q6HRS PRN IV NAUSEA/VOMITING 09/25/16 18:00 09/26/16 01:31 Morphine Sulfate 4 mg PRN Q2HR PRN IV PAIN 4/9/17 18:15 09/26/16 18:14 09/26/16 04:39 Imaging: Imaging: CT A/P w/ IV contrast IMPRESSION Minimal free fluid in the pelvis, likely physiologic. No identified acute abnormality, with limitations of the exam as discussed above. Acute Abd Series IMPRESSION: No acute abdominal abnormality is detected. PE: GEN: NAD HEENT: Atraumatic, PERRL LUNGS: CTAB HEART: RRR ABD: NABS, S/ND/NT EXTREMITY: No edema SKIN: No rashes, no jaundice NEURO/PSYCH: A & O 3 A/P: A/P: Vomiting, diarrhea - improved ?h/o ulcerative colitis -reports diagnosed on EGD/colon @ for vomiting 5-6 years ago -was treated briefly (unsure w/ what), no GI follow-up Dyspepsia -history of this Abd pain - resolved -CT as above Anemia, hypokalemia, lactic acidosis -h/o anemia w/ heavy periods -- Will review w/ Dr. Yao. Will ask for records from - ?diagnosis of UC. Will start PPI. Await C Diff. FELICITA COYNE Sep 26, 2016 11:11
[2016-09-26] MEDS ORDERED: PANTOPRAZOLE 40 MG TABLET.DR. PO SCH (12:00)
[2016-09-26] MEDS ORDERED: CEFTRIAXONE SODIUM 1 GM in IV NORMAL SALINE 50ML 50 ML IV SCH (17:00)
[2016-09-29] MEDS ORDERED: OXYC-323 PO (15:13)
== END 2016-09-26 12:00 | disposition left against medical advice (07) | DRG 392 ==
LOC: ER 13:37 → 6 SOUTH 17:29
PROVIDERS: ADMIT Internal Medicine; ATTEND Internal Medicine
DX: R11.2 Nausea with vomiting, unspecified (principal); N39.0 Urinary tract infection, site not specified; E87.2 Acidosis; R10.9 Unspecified abdominal pain; R19.7 Diarrhea, unspecified; E86.0 Dehydration; E87.6 Hypokalemia; F17.200 Nicotine dependence, unspecified, uncomplicated; F12.90 Cannabis use, unspecified, uncomplicated; Z98.51 Tubal ligation status
CPT/HCPCS: 36415; 74022; 74177; 80048; 80053; 81001; 81025; 83605; 83690; 85027; 85651; 87086; 87186; 87324; 93005; G0481; J0690; J1630; J1885; J2270; J2405; J7030; J7042; Q9967

== ENCOUNTER 2016-09-26 17:39 | Emergency (ER) | payer OTHER ==
[~2016-09-26] VITALS: Ht 160 cm; Wt 63.5 kg
[2016-09-26 17:50] VITALS: BP 160/95
[2016-09-29] MEDS ORDERED: OXYC-323 PO (15:13)
== END 2016-09-26 18:26 | disposition left against medical advice (07) ==
LOC: ER 17:39
DX: R11.2 Nausea with vomiting, unspecified (principal); R19.7 Diarrhea, unspecified; Z53.21 Procedure and treatment not carried out due to patient leaving prior to being seen by health care provider
CPT/HCPCS: 81025; 99281

== ENCOUNTER 2016-10-03 06:35 | Observation (INO) | payer OTHER ==
[~2016-10-03] VITALS: Ht 160 cm; Wt 63.5 kg
[~2016-10-03 06:35] MED LIST changes: +OXYC-323 PO
[2016-10-03] MEDS ORDERED: FENTANYL PF 100 MCG/2 ML VIAL. IV ONE (07:00)
[2016-10-03] MEDS ORDERED: ONDANSETRON PF 4 MG/2 ML VIAL. IV ONE (07:00)
[2016-10-03] MEDS ORDERED: IV NORMAL SALINE 1000ML BAG 1,000 ML IV ONE (07:15)
--- NOTE | 2016-10-03 07:33 | PHYS DOC ---
Past Medical History Past Medical History: Other Additional Past Medical Histor: ULCERATIVE COLITIS, Dental Caries Past Surgical History: Cholecystectomy, , Tubal ligation Additional Past Surgical Histo: X 3 Alcohol Use: None Drug Use: Marijuana Adult General Chief Complaint Chief Complaint: NAUSEA/VOMITING/DIARRHA HPI HPI 26-year-old female presenting to the emergency department today with abdominal pain in the epigastrium. Her pain started approximately 24 hours ago. She had previously been having epigastric abdominal pain about a week ago that had been more chronic in nature. She had a complete workup including an ultrasound EGD and HIDA scan. GI (Dr. Yao) and general surgery (Dr. Whitney) involved. Decision was made to proceed with elective laparoscopic cholecystectomy with intraoperative cholangiogram. She is status post this procedure on September 27 of this year. She is postoperative day 6. Her pain is sharp nonradiating severe intermittent and without alleviating factors. She has a reported remote history of ulcerative colitis however currently is not undergoing current therapy. Review of systems is negative for chest pain shortness of breath fevers chills. Positive for nausea with bilious emesis. She denies dysuria polyuria or being . All other review of systems is negative unless otherwise noted in history of present illness. Review of Systems Review of Systems SEE ABOVE. Current Medications Current Medications Current Medications Medications (Trade) Dose Ordered Sig/[facility] Start Time Stop Time Status Last Admin Dose Admin Fentanyl Citrate (Fentanyl 2ml Vial) 25 mcg 1X ONCE 10/03/16 07:00 10/03/16 07:05 DC 10/03/16 07:19 25 MCG Fentanyl Citrate 50 mcg 50 mcg PRN Q30MIN PRN 10/03/16 07:00 10/03/16 11:07 DC 10/03/16 11:06 50 MCG Info (Do NOT chart on this entry -- for MONITORING) 1 each PRN DAILY PRN 10/03/16 08:15 10/05/16 08:14 Iohexol (Omnipaque 300 Mg/ml) 75 ml 1X ONCE 10/03/16 08:15 10/03/16 08:16 DC 10/03/16 09:22 75 ML Metoclopramide HCl (Reglan) 10 mg STK-MED ONCE 10/03/16 08:36 10/03/16 08:37 DC Ondansetron HCl (Zofran) 4 mg 1X ONCE 10/03/16 07:00 10/03/16 07:05 DC 10/03/16 07:19 4 MG Potassium Chloride (KCl Premix 10meq) 100 ml @ 100 mls/hr Q1H 10/03/16 08:30 10/03/16 10:29 DC 10/03/16 11:06 100 MLS/HR Sodium Chloride 1,000 ml @ 1,000 mls/hr 1X ONCE 10/03/16 07:15 10/03/16 08:14 DC 10/03/16 07:19 1,000 MLS/HR Allergies Allergies Allergies Coded Allergies Type Severity Reaction Last Updated Verified No Known Drug Allergies 09/10/13 No Physical Exam Physical Exam Constitutional: Well developed, well nourished, patient appears to be in a mild to moderate amount of pain., non-toxic appearance. HENT: Normocephalic, atraumatic, bilateral external ears normal, oropharynx moist, no oral exudates, nose normal. [] Eyes: PERRLA, EOMI, conjunctiva normal, no discharge. [] Neck: Normal range of motion, no tenderness, supple, no stridor. [] Cardiovascular:Heart rate regular rhythm, no murmur [] Lungs & Thorax: Bilateral breath sounds clear to auscultation [] Abdomen: Abdomen is soft and mildly tender palpation in the epigastrium. Laparoscopic incision sites are clean dry and intact. No erythema present. No rebound tenderness or guarding is present. Skin: Warm, dry, no erythema, no rash. [] Back: No tenderness, no CVA tenderness. [] Extremities: No tenderness, no cyanosis, no clubbing, ROM intact, no edema. [] Neurologic: Alert and oriented X 3, normal motor function, normal sensory function, no focal deficits noted. Psychologic: Affect normal, judgement normal, mood normal. [] Current Patient Data Vital Signs Vital Signs Date Time Temp Pulse Resp B/P Pulse Ox O2 Delivery O2 Flow Rate FiO2 10/03/16 10:14 60 18 163/78 100 Room Air 10/03/16 06:50 97.9 97.9 Lab Values Laboratory Tests Test 10/03/16 07:03 10/03/16 07:15 10/03/16 07:37 10/03/16 09:41 POC Urine HCG, Qualitative Hcg negative (Negative) Sodium Level 143mmol/L (136-145) Potassium Level 2.7mmol/L (3.5-5.1) *L Chloride Level 103mmol/L (98-107) Carbon Dioxide Level 27mmol/L (21-32) Anion Gap 13 (6-14) Blood Urea Nitrogen 5mg/dL (7-20) L Creatinine 0.8mg/dL (0.6-1.0) Estimated GFR (Cockcroft-Gault) 103.3 BUN/Creatinine Ratio 6 (6-20) Glucose Level 99mg/dL (70-99) Calcium Level 9.7mg/dL (8.5-10.1) Total Bilirubin 0.3mg/dL (0.2-1.0) Aspartate Amino Transferase (AST) 25U/L (15-37) Alanine Aminotransferase (ALT) 47U/L (14-59) Alkaline Phosphatase 88U/L (46-116) Total Protein 8.7g/dL (6.4-8.2) H Albumin 4.1g/dL (3.4-5.0) Albumin/Globulin Ratio 0.9 (1.0-1.7) L Lipase 97U/L (73-393) White Blood Count 6.9x10^3/uL (4.0-11.0) Red Blood Count 3.99x10^6/uL (3.50-5.40) Hemoglobin 10.5g/dL (12.0-15.5) L Hematocrit 34.2% (36.0-47.0) L Mean Corpuscular Volume 86fL (79-100) # Mean Corpuscular Hemoglobin 26pg (25-35) Mean Corpuscular Hemoglobin Concent 31g/dL (31-37) Red Cell Distribution Width 17.4% (11.5-14.5) H Platelet Count 279x10^3/uL (140-400) Neutrophils (%) (Auto) 79% (31-73) H Lymphocytes (%) (Auto) 14% (24-48) L Monocytes (%) (Auto) 6% (0-9) Eosinophils (%) (Auto) 0% (0-3) Basophils (%) (Auto) 0% (0-3) Neutrophils # (Auto) 5.5x10^3uL (1.8-7.7) Lymphocytes # (Auto) 1.0x10^3/uL (1.0-4.8) Monocytes # (Auto) 0.4x10^3/uL (0.0-1.1) Eosinophils # (Auto) 0.0x10^3/uL (0.0-0.7) Basophils # (Auto) 0.0x10^3/uL (0.0-0.2) Urine Collection Type Unknown Urine Color Red Urine Clarity Cloudy Urine pH 8.0 Urine Specific Floyd 1.020 Urine Protein 30mg/dL (NEG-TRACE) Urine Glucose (UA) Negativemg/dL (NEG) Urine Ketones (Stick) Negativemg/dL (NEG) Urine Blood Large (NEG) Urine Nitrite Negative (NEG) Urine Bilirubin Negative (NEG) Urine Urobilinogen Dipstick 0.2mg/dL (0.2 mg/dL) Urine Leukocyte Esterase Small (NEG) Urine RBC Tntc/HPF (0-2) Urine WBC 1-4/HPF (0-4) Urine Squamous Epithelial Cells Few/LPF Urine Bacteria Few/HPF (0-FEW) Urine Mucus Slight/LPF Laboratory Tests 10/03/16 07:37 Laboratory Tests 10/03/16 07:15 EKG EKG EKG shows sinus rhythm with a regular rate. ST segments congruent. Not consistent with ischemia. [] Radiology/Procedures Radiology/Procedures [] Course & Med Decision Making Course & Med Decision Making Pertinent Labs and Imaging studies reviewed. (See chart for details) [] 18-year-old female presenting to the emergency department with epigastric abdominal pain postoperative day 6 for laparoscopic cholecystectomy. Triage vital signs afebrile with a normal heart rate. Mildly hypertensive likely secondary to pain. Pertinent physical exam findings showed a mildly tender abdomen without guarding or rebound tenderness present. No erythema present of the abdomen. IV established pain and nausea medications administered along with IV fluids. CT of the abdomen pelvis obtained. Blood work obtained. I discussed the case with the patient's surgeon. CT of the abdomen pelvis shows no acute pathology. The patient was then admitted to our hospital for further evaluation workup and care. EKG and troponin also ordered which were unremarkable. I considered atypical presentations of epigastric pain such as aortic dissection and mesenteric ischemia. Unfortunately we're unable to do a CT angiogram of the patient's abdomen due to recent contrast exposure. It is unlikely the patient will be able to get an MRI of the aorta due to her inability to stay still. Dragon Disclaimer Dragon Disclaimer This electronic medical record was generated, in whole or in part, using a voice recognition dictation system. Departure Departure Impression: Primary Impression: Abdominal pain Disposition: 09 ADMITTED INPATIENT Admitting Physician: Emy Askew Condition: STABLE Referrals: NO PCP (PCP) Problem Qualifiers Primary Impression: Abdominal pain Abdominal location: epigastric Qualified Code: R10.13 - Epigastric pain DIANA REID MD Oct 03, 2016 07:33
[2016-10-03 07:45] LABS: ALBUMIN 4.1 g/dL (3.4-5.0); ALBUMIN/GLOBULIN RATIO 0.9 (1.0-1.7); CALCIUM 9.7 mg/dL (8.5-10.1); CREATININE 0.8 mg/dL (0.6-1.0); GFR 103.3; TOTAL BILIRUBIN 0.3 mg/dL (0.2-1.0); TOTAL PROTEIN 8.7 g/dL (6.4-8.2)
[2016-10-03] MEDS: FENTANYL PF 100 MCG/2 ML VIAL. IV PRN ×3 (07:53→11:06)
[2016-10-03 07:55] LABS: POTASSIUM 2.7 mmol/L (3.5-5.1)
[2016-10-03 07:59] LABS: BASO % 0 % (0-3); EOS % 0 % (0-3); HEMATOCRIT 34.2 % (36.0-47.0); HEMOGLOBIN 10.5 g/dL (12.0-15.5); LYMPH % 14 % (24-48); MEAN CORPUSCULAR HEMOGLOBIN 26 pg (25-35); MEAN CORPUSCULAR HGB CONC 31 g/dL (31-37); MEAN CORPUSCULAR VOLUME 86 fL (79-100); MONO % 6 % (0-9); NEUT % 79 % (31-73); PLATELET COUNT 279 x10^3/uL (140-400); RED BLOOD COUNT 3.99 x10^6/uL (3.50-5.40); RED CELL DISTRIBUTION WIDTH 17.4 % (11.5-14.5); WHITE BLOOD COUNT 6.9 x10^3/uL (4.0-11.0)
[2016-10-03] MEDS ORDERED: IOHEXOL 300 MG/ML 75 ML VIAL IV ONE (08:15)
[2016-10-03] MEDS ORDERED: CONTRAST GIVEN MC PRN (08:15)
[2016-10-03] MEDS: POTASSIUM CHLORIDE 10MEQ 100 ML IV SCH ×6 (08:34→19:39)
[2016-10-03] MEDS ORDERED: METOCLOPRAMIDE HCL 10 MG/2 ML VIAL. ONE (08:36)
[2016-10-03] MEDS ORDERED: METOCLOPRAMIDE HCL 10 MG/2 ML VIAL. IV ONE (08:45)
[2016-10-03 09:54] LABS: BILIRUBIN,URINE NEGATIVE (NEG); GLUCOSE,URINE NEGATIVE (NEG); NITRITE,URINE NEGATIVE (NEG); PROTEIN,URINE 30 mg/dL (NEG-TRACE); UROBILINOGEN,URINE 0.2 mg/dL (0.2 mg/dL)
--- NOTE | 2016-10-03 10:00 | RAD ---
Indication epigastric pain status post cholecystectomy. Evaluate for potential bile leak. Axial images through the abdomen and pelvis were obtained. 75 cc of Omnipaque 300 was administered intravenously. No oral contrast was administered. Note is made of an examination 8 days earlier. Note is made of cholecystectomy 09/28/2016. The lung bases are clear. The liver and spleen appear unremarkable. Clips are noted in the gallbladder fossa. The adrenal glands and kidneys appear normal. No pancreatic abnormality is seen. No abnormal fluid collection is apparent in the abdomen. In the pelvis some free fluid is seen in the dependent portion. This may be physiologic. IMPRESSION: No definite acute process seen in the abdomen or pelvis. Small amount of free fluid in the dependent portion of the pelvis may be physiologic in a young female. If bile leak is clinically suspect and additional imaging evaluation for same clinically warranted a nuclear medicine hepatobiliary study could be performed.
[2016-10-03 10:18] LABS: RBC,URINE TNTC /HPF (0-2)
[2016-10-03 10:19] LABS: BACTERIA,URINE FEW /HPF (0-FEW); SQUAMOUS EPITHELIAL CELL,UR FEW /LPF
[2016-10-03] MEDS ORDERED: ONDANSETRON PF 4 MG/2 ML VIAL. IV PRN (11:30)
--- NOTE | 2016-10-03 12:16 | PDOC ---
Provider Note Provider Note #[id number]--mrwveop. abd pain--hida scan ordered. ERMIAS BELTRÁN MD Oct 03, 2016 12:16
[2016-10-03] MEDS: MORPHINE SULFATE 2 MG/ML DISP.SYRIN. IV PRN ×4 (13:13→21:49)
--- NOTE | 2016-10-03 13:23 | PDOC ---
G I PROGRESS NOTE Reason for Follow-up abd pain s/p manuela Subjective Off floor for study Physical Exam off floor not performed Review of Relevant I have reviewed the following items ratna (where applicable) has been applied. Labs Laboratory Tests Test 10/03/16 07:03 10/03/16 07:15 10/03/16 07:37 10/03/16 09:41 Bedside Urine HCG, Qualitative Hcg negative (Negative) Sodium Level 143mmol/L (136-145) Potassium Level 2.7mmol/L (3.5-5.1) Chloride Level 103mmol/L (98-107) Carbon Dioxide Level 27mmol/L (21-32) Anion Gap 13 (6-14) Blood Urea Nitrogen 5mg/dL (7-20) Creatinine 0.8mg/dL (0.6-1.0) Estimated GFR (Cockcroft-Gault) 103.3 BUN/Creatinine Ratio 6 (6-20) Glucose Level 99mg/dL (70-99) Calcium Level 9.7mg/dL (8.5-10.1) Total Bilirubin 0.3mg/dL (0.2-1.0) Aspartate Amino Transf (AST/SGOT) 25U/L (15-37) Alanine Aminotransferase (ALT/SGPT) 47U/L (14-59) Alkaline Phosphatase 88U/L (46-116) Total Protein 8.7g/dL (6.4-8.2) Albumin 4.1g/dL (3.4-5.0) Albumin/Globulin Ratio 0.9 (1.0-1.7) Lipase 97U/L (73-393) White Blood Count 6.9x10^3/uL (4.0-11.0) Red Blood Count 3.99x10^6/uL (3.50-5.40) Hemoglobin 10.5g/dL (12.0-15.5) Hematocrit 34.2% (36.0-47.0) Mean Corpuscular Volume 86fL (79-100) Mean Corpuscular Hemoglobin 26pg (25-35) Mean Corpuscular Hemoglobin Concent 31g/dL (31-37) Red Cell Distribution Width 17.4% (11.5-14.5) Platelet Count 279x10^3/uL (140-400) Neutrophils (%) (Auto) 79% (31-73) Lymphocytes (%) (Auto) 14% (24-48) Monocytes (%) (Auto) 6% (0-9) Eosinophils (%) (Auto) 0% (0-3) Basophils (%) (Auto) 0% (0-3) Neutrophils # (Auto) 5.5x10^3uL (1.8-7.7) Lymphocytes # (Auto) 1.0x10^3/uL (1.0-4.8) Monocytes # (Auto) 0.4x10^3/uL (0.0-1.1) Eosinophils # (Auto) 0.0x10^3/uL (0.0-0.7) Basophils # (Auto) 0.0x10^3/uL (0.0-0.2) Urine Collection Type Unknown Urine Color Red Urine Clarity Cloudy Urine pH 8.0 Urine Specific [place] 1.020 Urine Protein 30mg/dL (NEG-TRACE) Urine Glucose (UA) Negativemg/dL (NEG) Urine Ketones (Stick) Negativemg/dL (NEG) Urine Blood Large (NEG) Urine Nitrite Negative (NEG) Urine Bilirubin Negative (NEG) Urine Urobilinogen Dipstick 0.2mg/dL (0.2 mg/dL) Urine Leukocyte Esterase Small (NEG) Urine RBC Tntc/HPF (0-2) Urine WBC 1-4/HPF (0-4) Urine Squamous Epithelial Cells Few/LPF Urine Bacteria Few/HPF (0-FEW) Urine Mucus Slight/LPF Test 10/03/16 13:05 Bedside Troponin I 0.01ng/ml (<0.08) Laboratory Tests Test 10/03/16 07:03 10/03/16 07:15 10/03/16 07:37 10/03/16 09:41 Bedside Urine HCG, Qualitative Hcg negative (Negative) Sodium Level 143mmol/L (136-145) Potassium Level 2.7mmol/L (3.5-5.1) Chloride Level 103mmol/L (98-107) Carbon Dioxide Level 27mmol/L (21-32) Anion Gap 13 (6-14) Blood Urea Nitrogen 5mg/dL (7-20) Creatinine 0.8mg/dL (0.6-1.0) Estimated GFR (Cockcroft-Gault) 103.3 BUN/Creatinine Ratio 6 (6-20) Glucose Level 99mg/dL (70-99) Calcium Level 9.7mg/dL (8.5-10.1) Total Bilirubin 0.3mg/dL (0.2-1.0) Aspartate Amino Transf (AST/SGOT) 25U/L (15-37) Alanine Aminotransferase (ALT/SGPT) 47U/L (14-59) Alkaline Phosphatase 88U/L (46-116) Total Protein 8.7g/dL (6.4-8.2) Albumin 4.1g/dL (3.4-5.0) Albumin/Globulin Ratio 0.9 (1.0-1.7) Lipase 97U/L (73-393) White Blood Count 6.9x10^3/uL (4.0-11.0) Red Blood Count 3.99x10^6/uL (3.50-5.40) Hemoglobin 10.5g/dL (12.0-15.5) Hematocrit 34.2% (36.0-47.0) Mean Corpuscular Volume 86fL (79-100) Mean Corpuscular Hemoglobin 26pg (25-35) Mean Corpuscular Hemoglobin Concent 31g/dL (31-37) Red Cell Distribution Width 17.4% (11.5-14.5) Platelet Count 279x10^3/uL (140-400) Neutrophils (%) (Auto) 79% (31-73) Lymphocytes (%) (Auto) 14% (24-48) Monocytes (%) (Auto) 6% (0-9) Eosinophils (%) (Auto) 0% (0-3) Basophils (%) (Auto) 0% (0-3) Neutrophils # (Auto) 5.5x10^3uL (1.8-7.7) Lymphocytes # (Auto) 1.0x10^3/uL (1.0-4.8) Monocytes # (Auto) 0.4x10^3/uL (0.0-1.1) Eosinophils # (Auto) 0.0x10^3/uL (0.0-0.7) Basophils # (Auto) 0.0x10^3/uL (0.0-0.2) Urine Collection Type Unknown Urine Color Red Urine Clarity Cloudy Urine pH 8.0 Urine Specific [place] 1.020 Urine Protein 30mg/dL (NEG-TRACE) Urine Glucose (UA) Negativemg/dL (NEG) Urine Ketones (Stick) Negativemg/dL (NEG) Urine Blood Large (NEG) Urine Nitrite Negative (NEG) Urine Bilirubin Negative (NEG) Urine Urobilinogen Dipstick 0.2mg/dL (0.2 mg/dL) Urine Leukocyte Esterase Small (NEG) Urine RBC Tntc/HPF (0-2) Urine WBC 1-4/HPF (0-4) Urine Squamous Epithelial Cells Few/LPF Urine Bacteria Few/HPF (0-FEW) Urine Mucus Slight/LPF Test 10/03/16 13:05 Bedside Troponin I 0.01ng/ml (<0.08) Medications Current Medications Fentanyl Citrate (Fentanyl 2ml Vial) 25 mcg 1X ONCE IV Last administered on 07:19; Start 10/03/16 at 07:00; Stop 10/03/16 at 07:05; Status DC Ondansetron HCl (Zofran) 4 mg 1X ONCE IV Last administered on 10/03/16 07:19 ; Start 10/03/16 at 07:00; Stop 10/03/16 at 07:05; Status DC Fentanyl Citrate 50 mcg 50 mcg PRN Q30MIN PRN IV SEVERE PAIN Last administered on 10/03/16 11:06; Start 10/03/16 at 07:00; Stop 10/03/16 at 11:07; Status DC Sodium Chloride 1,000 ml @ 1,000 mls/hr 1X ONCE IV Last administered on 07:19; Start 10/03/16 at 07:15; Stop 10/03/16 at 08:14; Status DC Potassium Chloride (KCl Premix 10meq) 100 ml @ 100 mls/hr Q1H IV Last administered on 10/03/16 11:06; Start 10/03/16 at 08:30; Stop 10/03/16 at 10:29 ; Status DC Iohexol (Omnipaque 300 Mg/ml) 75 ml 1X ONCE IV Last administered on 10/03/16 09:22; Start 10/03/16 at 08:15; Stop 10/03/16 at 08:16; Status DC Info (Do NOT chart on this entry -- for MONITORING) 1 each PRN DAILY PRN MC SEE COMMENTS; Start 10/03/16 at 08:15; Stop 10/05/16 at 08:14 Metoclopramide HCl (Reglan) 10 mg 1X ONCE IV Last administered on 10/03/16 08 :37; Start 10/03/16 at 08:45; Stop 10/03/16 at 08:46; Status DC Metoclopramide HCl (Reglan) 10 mg STK-MED ONCE .ROUTE ; Start 10/03/16 at 08:36 ; Stop 10/03/16 at 08:37; Status DC Ondansetron HCl (Zofran) 4 mg PRN Q8HRS PRN IV NAUSEA/VOMITING Last administered on 10/03/16 13:13; Start 10/03/16 at 11:30; Stop 10/04/16 at 11:29 Morphine Sulfate 2 mg 2 mg PRN Q2HR PRN IV PAIN Last administered on 10/03/16 13:13; Start 10/03/16 at 11:30; Stop 10/04/16 at 11:29 Sodium Chloride (Iv Sodium Chloride 0.9% 1000ml Bag) 1,000 ml @ 125 mls/hr Q8H IV ; Start 10/03/16 at 11:19; Stop 10/04/16 at 11:18 Active Scripts Active Percocet 5-325 Mg Tablet (Oxycodone/Acetaminophen) 1 Each Tablet 1-2 Tab PO Q4- 6HRS Tobramycin 5 Ml Drops 1 Drop OD Q4HRS Diflucan (Fluconazole) 150 Mg Tablet 1 Tab PO ONCE one tablet today then repeat in one week Amoxicillin 875 Mg Tablet 1 Tab PO BID Amoxicillin 500 Mg Capsule 1 Cap PO TID Ultram (Tramadol Hcl) 50 Mg Tablet 50 Mg PO Q6H PRN Penicillin V Potassium 500 Mg Tablet 1 Tab PO TID Cipro (Ciprofloxacin Hcl) 500 Mg Tablet 1 Tab PO BID PRN Promethazine Hcl 25 Mg Tablet 25 Mg PO Q6H PRN Cipro (Ciprofloxacin Hcl) 500 Mg Tablet 500 Mg PO BID 5 Days Vitals/I & O Vital Sign - Last 24 Hours 10/03/16 10/03/16 10/03/16 10/03/16 06:50 07:22 07:43 08:13 Temp 97.9 97.9 Pulse 62 68 54 58 Resp 20 20 20 16 B/P 177/106 169/92 156/85 163/92 Pulse Ox 99 100 100 100 O2 Delivery Room Air Room Air Room Air Room Air 10/03/16 10/03/16 10/03/16 10/03/16 08:43 09:44 10:14 11:10 Pulse 58 61 60 58 Resp 16 16 18 18 B/P 167/88 160/90 163/78 152/86 Pulse Ox 100 100 100 100 O2 Delivery Room Air Room Air Room Air Room Air 10/03/16 11:44 Pulse 54 Resp 18 B/P 147/79 Pulse Ox 100 Problem List Problems Medical Problems: (1) Abdominal pain Status: Acute (2) Abdominal pain Status: Acute Assessment Abd apin -s/p manuela, await hida to assess for bile leak, if unrevealing, Ct scan may be needed as well as upper endoscopy GILMA FOURNIER MD Oct 03, 2016 13:23
[2016-10-03] MEDS ORDERED: NON FORMULARY ITEM (Fluconazole (Diflucan) 1 TAB) PO SCH (14:15)
[2016-10-03] MEDS ORDERED: TRAMADOL 50 MG TABLET. PO PRN (14:15)
[2016-10-03] MEDS ORDERED: PROCHLORPERAZINE 10 MG/2 ML VIAL. ONE (14:21)
[2016-10-03] MEDS ORDERED: MORPHINE SULFATE 2 MG/ML DISP.SYRIN. IV ONE (14:30)
[2016-10-03] MEDS ORDERED: PROCHLORPERAZINE 10 MG/2 ML VIAL. IV ONE (14:30)
--- NOTE | 2016-10-03 14:58 | RAD ---
Indication epigastric and abdominal pain. 6 days post cholecystectomy. Assess for potential bile leak. 5 mCi of technetium labeled Choletec was administered. Standard imaging was obtained through 45 minutes with an additional 60 minutes image. There is normal uptake in the liver. Normal activity is seen in the biliary system. There is normal transit to the duodenum. No bile leak is seen. IMPRESSION: No evidence of bile leak
[2016-10-03] MEDS ORDERED: PROCHLORPERAZINE 10 MG/2 ML VIAL. IV PRN (15:15)
[2016-10-03] MEDS ORDERED: PROMETHAZINE 12.5 MG in IV NORMAL SALINE 50ML 50 ML IV PRN (15:15)
[2016-10-03 15:20] VITALS: BP 147/82
--- NOTE | 2016-10-03 15:20 | PDOC1 ---
History and Physical Date of Admission Date of Admission DATE: 10/03/16 TIME: 15:12 Identification/Chief Complaint Chief Complaint vomiting, abd pain Problems: Source Source: Chart review, Patient History of Present Illness History of Present Illness 26 y/o AA female who was just here about a week ago after undergoing lap manuela for biliary dyskinesia, she presented back then with similar sxs, vomting, abd pain, She was dcd home, doing well until today, emesis, abd pain, in tears. No fevers, no change in BM, HAs been diaphoretic at ER as per [employer], crying, Saw her at the [facility] where she was currently getting her HIDA scan, in pain, in tears , Needed to give extra morphine and compazine to finish the test. ALready seen by GS. UDs positive for opiates and cannabinoids, this admission. Hypokalemic again at 2 plus, got 20 meqs at ER. HAs a left EJ Past Medical History GI: Other (? UC) Past Surgical History Past Surgical History: , Tubal Ligation Family History Family History: No Significant Social History Smoke: No ALCOHOL: none Drugs: Marijuana Current Problem List Problem List Problems Medical Problems: (1) Abdominal pain Status: Acute (2) Abdominal pain Status: Acute Problems: Current Medications Current Medications Current Medications Fentanyl Citrate (Fentanyl 2ml Vial) 25 mcg 1X ONCE IV Last administered on 07:19; Start 10/03/16 at 07:00; Stop 10/03/16 at 07:05; Status DC Ondansetron HCl (Zofran) 4 mg 1X ONCE IV Last administered on 10/03/16 07:19 ; Start 10/03/16 at 07:00; Stop 10/03/16 at 07:05; Status DC Fentanyl Citrate 50 mcg 50 mcg PRN Q30MIN PRN IV SEVERE PAIN Last administered on 10/03/16 11:06; Start 10/03/16 at 07:00; Stop 10/03/16 at 11:07; Status DC Sodium Chloride 1,000 ml @ 1,000 mls/hr 1X ONCE IV Last administered on 07:19; Start 10/03/16 at 07:15; Stop 10/03/16 at 08:14; Status DC Potassium Chloride (KCl Premix 10meq) 100 ml @ 100 mls/hr Q1H IV Last administered on 10/03/16 11:06; Start 10/03/16 at 08:30; Stop 10/03/16 at 10:29 ; Status DC Iohexol (Omnipaque 300 Mg/ml) 75 ml 1X ONCE IV Last administered on 10/03/16 09:22; Start 10/03/16 at 08:15; Stop 10/03/16 at 08:16; Status DC Info (Do NOT chart on this entry -- for MONITORING) 1 each PRN DAILY PRN MC SEE COMMENTS; Start 10/03/16 at 08:15; Stop 10/05/16 at 08:14 Metoclopramide HCl (Reglan) 10 mg 1X ONCE IV Last administered on 10/03/16 08 :37; Start 10/03/16 at 08:45; Stop 10/03/16 at 08:46; Status DC Metoclopramide HCl (Reglan) 10 mg STK-MED ONCE .ROUTE ; Start 10/03/16 at 08:36 ; Stop 10/03/16 at 08:37; Status DC Ondansetron HCl (Zofran) 4 mg PRN Q8HRS PRN IV NAUSEA/VOMITING Last administered on 10/03/16 13:13; Start 10/03/16 at 11:30; Stop 10/03/16 at 14:09 ; Status DC Morphine Sulfate 2 mg 2 mg PRN Q2HR PRN IV PAIN Last administered on 10/03/16 13:13; Start 10/03/16 at 11:30; Stop 10/04/16 at 11:29 Sodium Chloride (Iv Sodium Chloride 0.9% 1000ml Bag) 1,000 ml @ 125 mls/hr Q8H IV ; Start 10/03/16 at 11:19; Stop 10/04/16 at 11:18 Ondansetron HCl (Zofran) 4 mg PRN Q6HRS PRN IV NAUSEA/VOMITING; Start 10/03/16 at 14:07 Oxycodone/ Acetaminophen (Percocet 5/325) 1 tab TID PO ; Start 10/03/16 at 21:00 ; Status UNV Tobramycin Sulfate (Tobrex Ophth Soln) 1 drop Q4HRS OD ; Start 10/03/16 at 16:00 ; Status UNV Tramadol HCl (Ultram) 50 mg PRN Q6HRS PRN PO PAIN; Start 10/03/16 at 14:15 Non-Formulary Medication 1 tab BID PO ; Start 10/03/16 at 21:00; Status UNV Non-Formulary Medication 500 mg BID PO ; Start 10/03/16 at 21:00; Status UNV Non-Formulary Medication 1 tab ONCE PO ; Start 10/03/16 at 14:15; Status UNV Non-Formulary Medication 25 mg Q6H PRN PO NAUSEA/VOMITING; Start 10/03/16 at 14 :15; Status UNV Prochlorperazine Edisylate (Compazine) 10 mg STK-MED ONCE .ROUTE ; Start at 14:21; Stop 10/03/16 at 14:22; Status DC Prochlorperazine Edisylate (Compazine) 10 mg 1X ONCE IV Last administered on t 14:28; Start 10/03/16 at 14:30; Stop 10/03/16 at 14:31; Status UNV Morphine Sulfate 2 mg 1X ONCE IV Last administered on 10/03/16t 14:28; Start 10/03/16 at 14:30; Stop 10/03/16 at 14:31; Status UNV Active Scripts Active Percocet 5-325 Mg Tablet (Oxycodone/Acetaminophen) 1 Each Tablet 1-2 Tab PO Q4- 6HRS Tobramycin 5 Ml Drops 1 Drop OD Q4HRS Diflucan (Fluconazole) 150 Mg Tablet 1 Tab PO ONCE one tablet today then repeat in one week Amoxicillin 875 Mg Tablet 1 Tab PO BID Amoxicillin 500 Mg Capsule 1 Cap PO TID Ultram (Tramadol Hcl) 50 Mg Tablet 50 Mg PO Q6H PRN Penicillin V Potassium 500 Mg Tablet 1 Tab PO TID Cipro (Ciprofloxacin Hcl) 500 Mg Tablet 1 Tab PO BID PRN Promethazine Hcl 25 Mg Tablet 25 Mg PO Q6H PRN Cipro (Ciprofloxacin Hcl) 500 Mg Tablet 500 Mg PO BID 5 Days Allergies Allergies: Coded Allergies: No Known Drug Allergies (Unverified , 09/10/13) ROS Review of System limited- pt in pain and crying, sitting up, curled up/bending forward General: No: Appetite, Chills, Fatigue, Malaise, Night Sweats, Other PSYCHOLOGICAL ROS: YES: Anxiety, No: Behavioral Disorder, Concentration difficultie, Decreased libido, Depression, Disorientation, Hallucinations, Hostility, Irritablity, Memory difficulties, Mood Swings, Obsessive thoughts, Other, Physical abuse, Sexual abuse, Sleep disturbances, Suicidal ideation Eyes: No Blurry vision, No Decreased vision, No Double vision, No Dry eyes, No Excessive tearing, No Eye Pain, No Itchy Eyes, No Loss of vision, No Other, No Photophobia, No Scotomata, No Uses contacts, No Uses glasses HEENT: No: Epistaxis, Heacaches, Hearing change, Nasal congestion, Nasal discharge, Oral lesions, Other, Sinus pain, Sneezing, Snoring, Sore Throat, Tinnitus, Vertigo, Visual Changes, Vocal changes ALLERGY AND IMMUNOLOGY: No: Hives, Insect Bite Sensitivity, Itchy/Watery Eyes, Nasal Congestion, Other, Post Nasal Drip, Seasonal Allergies Hematological and Lymphatic: No: Bleeding Problems, Blood Clots, Blood Transfusions, Brusing, Night Sweats, Other, Pallor, Swollen Lymph Nodes ENDOCRINE: No: Breast Changes, Galactorrhea, Hair Pattern Changes, Hot Flashes , Malaise/lethargy, Mood Swings, Other, Palpitations, Polydipsia/polyuria, Skin Changes, Temperature Intolerance, Unexpected Weight Changes Breast: No New/Changing Breast Lumps, No Nipple changes, No Nipple discharge, No Other Respiratory: No: Cough, Hemoptysis, Orthopnea, Other, Pleuritic Pain, SOB with excertion, Shortness of breath, Sputum Changes, Stridor, Tachypnea, Wheezing Cardiovascular: No Chest Pain, No Edema, No Lt Headedness, No Orthopnea, No Other, No Palpitations, No Paroxysmal Noc. Dyspnea Gastrointestinal: Yes Abdominal Pain, Yes Nausea, Yes Vomiting Genitourinary: No , No , No , No , No , No , No , No Discharge, No Dysuria, No Flank Pain, No Frequency, No Hematuria, No Incontinence, No Other, No Pain, No Retention, No Urgency Musculoskeletal: No Gait Disturbance, No Joint Pain, No Joint Stiffness, No Joint Swelling, No Muscle Pain, No Muscular Weakness, No Other, No Pain In:, No Swelling In: Neurological: No Behavorial Changes, No Bowel/Bladder ControlChng, No Confusion , No Dizziness, No Gait Disturbance, No Headaches, No Impaired Coord/balance, No Memory Loss, No Numbness/Tingling, No Other, No Seizures, No Speech Problems , No Tremors, No Visual Changes, No Weakness Skin: No Acne, No Dry Skin, No Eczema, No Hair Changes, No Lumps, No Mole Changes, No Mottling, No Nail Changes, No Other, No Pruritus, No Rash, No Skin Lesion Changes Physical Exam General: Oriented X3, No acute distress, Other (anxious) HEENT: Atraumatic, PERRLA, EOMI Lungs: Clear to auscultation, Normal air movement Heart: S1S2, RRR, no thrills, no rubs, no gallops Cardiovascular: S1, S2 Breasts: Normal Abdomen: Normal bowel sounds, Soft, No tenderness, No hepatosplenomegaly, No masses, Other (tender to palpation, epigastric and r sided area, no rebound; lap wounds healing well) Rectal Exam: not examined PELVIC: Nml ext genitalia Extremities: No clubbing, No cyanosis, No edema, Normal pulses, No tenderness/ swelling Skin: No rashes, No breakdown, No significant lesion Neuro: Normal gait, Normal speech, Strength at 5/5 X4 ext, Normal tone, Sensation intact, Cranial nerves 3-12 NL, Reflexes 2+ Psych/Mental Status: Mental status NL, Mood NL Vitals Vitals Vital Signs Date Time Temp Pulse Resp B/P Pulse Ox O2 Delivery O2 Flow Rate FiO2 10/03/16 13:00 60 18 165/92 100 Room Air 10/03/16 06:50 97.9 97.9 Labs Labs Laboratory Tests Test 10/03/16 07:03 10/03/16 07:15 10/03/16 07:37 10/03/16 09:41 Bedside Urine HCG, Qualitative Hcg negative (Negative) Sodium Level 143mmol/L (136-145) Potassium Level 2.7mmol/L (3.5-5.1) Chloride Level 103mmol/L (98-107) Carbon Dioxide Level 27mmol/L (21-32) Anion Gap 13 (6-14) Blood Urea Nitrogen 5mg/dL (7-20) Creatinine 0.8mg/dL (0.6-1.0) Estimated GFR (Cockcroft-Gault) 103.3 BUN/Creatinine Ratio 6 (6-20) Glucose Level 99mg/dL (70-99) Calcium Level 9.7mg/dL (8.5-10.1) Total Bilirubin 0.3mg/dL (0.2-1.0) Aspartate Amino Transf (AST/SGOT) 25U/L (15-37) Alanine Aminotransferase (ALT/SGPT) 47U/L (14-59) Alkaline Phosphatase 88U/L (46-116) Total Protein 8.7g/dL (6.4-8.2) Albumin 4.1g/dL (3.4-5.0) Albumin/Globulin Ratio 0.9 (1.0-1.7) Lipase 97U/L (73-393) White Blood Count 6.9x10^3/uL (4.0-11.0) Red Blood Count 3.99x10^6/uL (3.50-5.40) Hemoglobin 10.5g/dL (12.0-15.5) Hematocrit 34.2% (36.0-47.0) Mean Corpuscular Volume 86fL (79-100) Mean Corpuscular Hemoglobin 26pg (25-35) Mean Corpuscular Hemoglobin Concent 31g/dL (31-37) Red Cell Distribution Width 17.4% (11.5-14.5) Platelet Count 279x10^3/uL (140-400) Neutrophils (%) (Auto) 79% (31-73) Lymphocytes (%) (Auto) 14% (24-48) Monocytes (%) (Auto) 6% (0-9) Eosinophils (%) (Auto) 0% (0-3) Basophils (%) (Auto) 0% (0-3) Neutrophils # (Auto) 5.5x10^3uL (1.8-7.7) Lymphocytes # (Auto) 1.0x10^3/uL (1.0-4.8) Monocytes # (Auto) 0.4x10^3/uL (0.0-1.1) Eosinophils # (Auto) 0.0x10^3/uL (0.0-0.7) Basophils # (Auto) 0.0x10^3/uL (0.0-0.2) Urine Collection Type Unknown Urine Color Red Urine Clarity Cloudy Urine pH 8.0 Urine Specific [place] 1.020 Urine Protein 30mg/dL (NEG-TRACE) Urine Glucose (UA) Negativemg/dL (NEG) Urine Ketones (Stick) Negativemg/dL (NEG) Urine Blood Large (NEG) Urine Nitrite Negative (NEG) Urine Bilirubin Negative (NEG) Urine Urobilinogen Dipstick 0.2mg/dL (0.2 mg/dL) Urine Leukocyte Esterase Small (NEG) Urine RBC Tntc/HPF (0-2) Urine WBC 1-4/HPF (0-4) Urine Squamous Epithelial Cells Few/LPF Urine Bacteria Few/HPF (0-FEW) Urine Mucus Slight/LPF Test 10/03/16 13:05 Bedside Troponin I 0.01ng/ml (<0.08) Laboratory Tests Test 10/03/16 07:03 10/03/16 07:15 10/03/16 07:37 10/03/16 09:41 Bedside Urine HCG, Qualitative Hcg negative (Negative) Sodium Level 143mmol/L (136-145) Potassium Level 2.7mmol/L (3.5-5.1) Chloride Level 103mmol/L (98-107) Carbon Dioxide Level 27mmol/L (21-32) Anion Gap 13 (6-14) Blood Urea Nitrogen 5mg/dL (7-20) Creatinine 0.8mg/dL (0.6-1.0) Estimated GFR (Cockcroft-Gault) 103.3 BUN/Creatinine Ratio 6 (6-20) Glucose Level 99mg/dL (70-99) Calcium Level 9.7mg/dL (8.5-10.1) Total Bilirubin 0.3mg/dL (0.2-1.0) Aspartate Amino Transf (AST/SGOT) 25U/L (15-37) Alanine Aminotransferase (ALT/SGPT) 47U/L (14-59) Alkaline Phosphatase 88U/L (46-116) Total Protein 8.7g/dL (6.4-8.2) Albumin 4.1g/dL (3.4-5.0) Albumin/Globulin Ratio 0.9 (1.0-1.7) Lipase 97U/L (73-393) White Blood Count 6.9x10^3/uL (4.0-11.0) Red Blood Count 3.99x10^6/uL (3.50-5.40) Hemoglobin 10.5g/dL (12.0-15.5) Hematocrit 34.2% (36.0-47.0) Mean Corpuscular Volume 86fL (79-100) Mean Corpuscular Hemoglobin 26pg (25-35) Mean Corpuscular Hemoglobin Concent 31g/dL (31-37) Red Cell Distribution Width 17.4% (11.5-14.5) Platelet Count 279x10^3/uL (140-400) Neutrophils (%) (Auto) 79% (31-73) Lymphocytes (%) (Auto) 14% (24-48) Monocytes (%) (Auto) 6% (0-9) Eosinophils (%) (Auto) 0% (0-3) Basophils (%) (Auto) 0% (0-3) Neutrophils # (Auto) 5.5x10^3uL (1.8-7.7) Lymphocytes # (Auto) 1.0x10^3/uL (1.0-4.8) Monocytes # (Auto) 0.4x10^3/uL (0.0-1.1) Eosinophils # (Auto) 0.0x10^3/uL (0.0-0.7) Basophils # (Auto) 0.0x10^3/uL (0.0-0.2) Urine Collection Type Unknown Urine Color Red Urine Clarity Cloudy Urine pH 8.0 Urine Specific [place] 1.020 Urine Protein 30mg/dL (NEG-TRACE) Urine Glucose (UA) Negativemg/dL (NEG) Urine Ketones (Stick) Negativemg/dL (NEG) Urine Blood Large (NEG) Urine Nitrite Negative (NEG) Urine Bilirubin Negative (NEG) Urine Urobilinogen Dipstick 0.2mg/dL (0.2 mg/dL) Urine Leukocyte Esterase Small (NEG) Urine RBC Tntc/HPF (0-2) Urine WBC 1-4/HPF (0-4) Urine Squamous Epithelial Cells Few/LPF Urine Bacteria Few/HPF (0-FEW) Urine Mucus Slight/LPF Test 10/03/16 13:05 Bedside Troponin I 0.01ng/ml (<0.08) VTE Prophylaxis Ordered VTE Prophylaxis Devices: Yes VTE Pharmacological Prophylaxi: Yes Assessment/Plan Assessment/Plan 1. ABd pain, emesis recent lap manuela for biliary dyskinesia 2. Hypokalemia, critical sec to emesis 3. Positive cannabinoids in the system 4. SIRS POA, no sepsis or organ dysfcn 5. MIld to mod PCM PLAN: AWAIT HIDA scan results NAusea and pain emds Replace K more -give extra 40 Rpt K angelica and add mag Courtesy consult GS and gI - post op Awaiting home meds IVF NPO Dw ER Seen at [facility] JEET MORALES MD Oct 03, 2016 15:20
[2016-10-03] MEDS: IV NORMAL SALINE 1000ML BAG 1,000 ML IV SCH ×2 (15:25→19:19)
[2016-10-03] MEDS ORDERED: PROMETHAZINE 12.5 MG TABLET. PO PRN (15:45)
[2016-10-03] MEDS: OXYCODONE/APAP 5/325 TABLET. PO SCH ×2 (16:00→21:00)
[2016-10-03] MEDS ORDERED: TOBRAMYCIN 0.3% OPHTH SOLUTION 5ML BOTTLE. OD SCH (16:00)
--- NOTE | 2016-10-03 16:33 | EKG ---
[facility] [address] [place] [address] Test Date: 2016-10-03 Test Time: 12:10:00 Pat Name: VLAD BOTELLO Department: Room: 422 Gender: F Subject Scientific Research: : 1990 Requested By: DIANA REID Order Number: [id number] Reading MD: Measurements Intervals [place] Rate: 57 P: 58 MO: 166 QRS: 62 QRSD: 78 T: 64 QT: 382 QTc: 375 Interpretive Statements SINUS RHYTHM NORMAL ECG RI6.01 No previous ECG available for comparison
[2016-10-03] MEDS: ONDANSETRON PF 4 MG/2 ML VIAL. IV PRN (17:21)
[2016-10-03 19:00] VITALS: BP 131/99
[2016-10-03] MEDS ORDERED: CIPROFLOXACIN HCL 250 MG TABLET. PO SCH (21:00)
[2016-10-03] MEDS ORDERED: NON FORMULARY ITEM (Amoxicillin 1 TAB) PO SCH (21:00)
[2016-10-03 23:00] VITALS: BP 137/79
[2016-10-04 03:00] VITALS: BP 145/90
[2016-10-04] MEDS: ONDANSETRON PF 4 MG/2 ML VIAL. IV PRN (03:01)
[2016-10-04] MEDS: MORPHINE SULFATE 2 MG/ML DISP.SYRIN. IV PRN ×2 (03:01→06:18)
[2016-10-04] MEDS: IV NORMAL SALINE 1000ML BAG 1,000 ML IV SCH (03:01)
--- NOTE | 2016-10-04 04:40 | ACF ---
Admit Criteria Forms Admit Criteria Forms Admit Criteria Forms ABDOMINAL PAIN Clinical Indications for Admission to Inpatient Care (Place 'X' for any and all applicable criteria): Admission is indicated for ANY ONE of the following(1)(2)(3)(4)(5): [X]I. Inpatient admission required rather than observation care (Also use Abdominal Pain: Observation Care, as appropriate) because of ANY ONE of the following: [X]a) Severe pain requiring acute inpatient management [ ]b) Identification of etiology/finding that requires inpatient care (eg, aortic dissection, free air) [ ]c) Absent bowel sounds with complete ileus(6) [ ]d) Suspected toxic megacolon [ ]e) Severe electrolyte abnormalities requiring inpatient care [ ]f) High fever or infection requiring inpatient admission as indicated by ANY ONE of following(7)(8): [ ] i) Appropriate outpatient or observational care antimicrobial treatment unavailable, not effective, or not feasible [ ] ii) Documented bacteremia [ ] iii) Temperature > 104.9 degrees F (oral) [ ] iv) T >103.1 F (oral) or < 96.8 F(rectal) that does not respond to all emergency treatment measures [ ]g) Signs of intestinal obstruction [B] [ ]h) Hemodynamic instability [ ]i) IV fluid to replace significant ongoing losses (greater than 3 L/m2 per day) (12)(13) [ ]j) Percutaneous or open drainage (eg, abscess, biliary tract ) procedures [ ]k) Parenteral nutrition regimen that must be implemented on inpatient basis [ ]l) Other condition,treatment or monitoring requiring inpatient admission. [ ]II. Peritoneal signs present [ ]III. Surgery needed that cannot be performed on an ambulatory basis. [ ]IV. Evaluation requires patient to not eat or drink for extended period ( eg, more than 24 hours). [ ]V. Contraindications and/or Inappropriate clinical situations for Observational Care in patients with abdominal pain, when ANY ONE of the following is required: [ ]a) Thorough evaluation is required to prevent catastrophic events due to delays in diagnosing (e.g.Mesenteric ischemia) 1,3 [ ]b) Patient with severe pathology or with chronic symptoms unlikely to improve in the ED stay (3) [ ]. General contraindications and/or Inappropriate clinical situations for Observational Care in patients with abdominal pain, when ANY ONE of the following is required: [ ]a) Prediction of prolongation of LOS based on ANY ONE of the following may be considered as a contraindication for observational care 2, 3, 4, 5, 6, 7, 8, 9, 10, 11 [ ]i) Age > 65 yrs. [ ]ii) Patient arriving by ambulance [ ]iii) Patient with high acuity [ ]iv) Patient requiring vital sign monitoring [ ]v) Patient on IV medication [ ]b) Systolic blood pressures 180mmHg 3,12 [ ]c) Patient with altered mental status including delirium and other alteration of consciousness, (3) [ ]d) Patient whose discharge disposition will be to a fci home or rehabilitation home should not be managed in Emergency Department Observation Unit. CMS rule requires 3 days hospital stay before such placement.3,13 [ ]e) Patient with failure to thrive due to broad array of etiologies 3,16,17 [ ]f) Inability to ambulate 3,14 Extended stay beyond goal length of stay may be needed for(2)(3): [ ]a) Persistent abdominal pain with suspected intra-abdominal process [ ]b) Diagnosed condition requiring continued stay (e.g., pancreatitis, complicated diverticulitis) [ ]c) Surgery (e.g., colectomy) The original [employer] content created by [employer] has been revised. The portions of the content which have been revised are identified through the use of italic text or in bold, and [facility] has neither reviewed nor approved the modified material.All other unmodified content is copyright [employer] Please see references footnoted in the original [employer] [facility] [employer] edition 2016 CHRISTIAN BEAUCHAMP Oct 04, 2016 04:40
--- NOTE | 2016-10-04 05:10 | CONS ---
DATE OF CONSULTATION: 10/03/2016 CHIEF COMPLAINT: Abdominal pain. HISTORY OF PRESENT ILLNESS: The patient is a 26-year-old female whom I performed a laparoscopic cholecystectomy last week for biliary dyskinesia. That was at least her second visit in the last couple of days to [place]. The first visit for abdominal pain, she left against medical advice and then she returned again with abdominal pain. She did well immediately following cholecystectomy and she is here today with her mother complaining of severe abdominal pain. When asked where she hurts, she points to her epigastric incision. She uses 1 single finger to point to that incision. She says the pain is severe. It is constant, it is sharp and it radiates to her back. It is associated with nausea and vomiting. She has vomited once while I am in the room seeing her. PAST MEDICAL HISTORY: Inflammatory bowel disease, remote history thereof. PAST SURGICAL HISTORY: Recent laparoscopic cholecystectomy with intraoperative cholangiogram. SOCIAL HISTORY: She denies drug use, although in the past, she has tested positive for marijuana. She does smoke. She is not employed. FAMILY HISTORY: Her mother is present here today and no significant family history notable. MEDICATIONS: Reviewed her outpatient medications. ALLERGIES: No known drug allergies. REVIEW OF SYSTEMS: CONSTITUTIONAL: Denies fevers or chills. EYES: No abrupt loss of vision or double vision. EARS, NOSE, MOUTH AND THROAT: No loss of hearing or ringing in the ears. CARDIOVASCULAR: Denies chest pain or heart palpitations. RESPIRATORY: No cough, shortness of breath. GASTROINTESTINAL: See HPI. GENITOURINARY: No dysuria or hematuria. HEMATOLOGIC: No easy bleeding or bruising. MUSCULOSKELETAL: No new myalgias or arthralgias. DERMATOLOGIC: No new skin rashes or lesions. NEUROLOGIC: No headaches or seizures. PSYCHIATRIC: No depression or anxiety. PHYSICAL EXAMINATION: VITAL SIGNS: She is afebrile with a pulse of 54, respiratory rate 18, blood pressure is 147/79, O2 sat 100% on room air. GENERAL: This patient is trembling. She is sweating. She is in severe distress, which stands in sharp contrast to her normal vital signs and her normal labs other than her hypokalemia as well as her normal urine and her unremarkable CT scan of the abdomen and pelvis performed with IV contrast. EYES: Her pupils are round and reactive. Sclerae are nonicteric. HENT: Head is atraumatic. Mucous membranes are moist. She is sweating. NECK: Supple, without cervical lymphadenopathy, no supraclavicular lymphadenopathy. CARDIOVASCULAR: She is bradycardic, 2+ right radial pulse. No pedal edema. RESPIRATORY: Respirations nonlabored. Chest wall nontender to palpation. ABDOMEN: Soft, very minimally tender, certainly nothing to correlate with the amount of distress that she is in at this time. Her incisions are still bandaged with Steri-Strips and the Steri-Strips are clean and dry and unremarkable. Again, the only area that she points to pain is the epigastric incision. The rest of her abdomen, she has no pain within it and on exam, she is minimally tender. PSYCHIATRIC: She is agitated. She gets out of the bed because she says she is not comfortable in the bed. She is at that point squatting next to the bed with her gown hanging off of her. She looks disheveled. NEUROLOGIC: She can move all 4 extremities without difficulty. Her balance seems to be normal. As stated, she can get out of the bed, stand up and then squat down without any trouble with her balance. LABORATORY DATA: Reviewed. IMAGING: Reviewed. ASSESSMENT AND PLAN: Abdominal pain, etiology unclear. Of note, the surgery was performed for abdominal pain in the setting of abnormal PIPIDA scan. I asked her mother if she has ever seen her to have this kind of distress before and the patient's mother says that yes for quite some time now as the patient has had episodes of similar types of severe abdominal pain with severe distress and sweating and trembling. The patient's mother seems to think that this is more of an ongoing process and does not know what is wrong with her daughter. I spoke with Dr. Caballero. He is going to perform some additional testing including troponins, blood pressures in all extremities as well as an EKG to rule out cardiac problems including aortic dissection. She has already had a CT of her abdomen and pelvis with IV contrast, so repeating her CT for CT angio was not possible at this time. She is too agitated for her to remain still on an MRI. I think the likelihood of her having an aortic dissection, warranting sedation for an MRI is very unlikely given her chronicity of these symptoms according to her mother as well as her age. If her other ancillary tests such as troponin, EKG and multiple extremity blood pressures are normal, I think that the likelihood of her having a vascular abnormality is very, very unlikely. Also, possibility of bile leak. PIPIDA scan has been ordered. Possible gastritis or ulcer disease, possible functional abdominal pain, possible drug seeking behavior. She is asking for additional narcotics. She has had 3 doses of fentanyl. It is unclear as to whether or not this is seeking type of behavior or if she is truly in that much pain that she is requesting relief. She is asking for morphine specifically, asking that I gave her enough to just let her go to sleep for 3 hours. Plan is described above. In summary, plan is for additional testing per Dr. Caballero in the ER including troponin, EKG and blood pressures in multiple extremities as well as PIPIDA scan, admit for pain control. She may require GI consult as well as correction of her potassium level per her admitting service. ERMIAS BELTRÁN MD DR: ELIAZAR/jose JOB#: [id number] / [id number] MURTAZA
[2016-10-04 06:21] LABS: BASO % 1 % (0-3); EOS % 0 % (0-3); HEMATOCRIT 32.5 % (36.0-47.0); HEMOGLOBIN 10.2 g/dL (12.0-15.5); LYMPH # 1.6 x10^3/uL (1.0-4.8); LYMPH % 30 % (24-48); MEAN CORPUSCULAR HEMOGLOBIN 26 pg (25-35); MEAN CORPUSCULAR HGB CONC 32 g/dL (31-37); MEAN CORPUSCULAR VOLUME 83 fL (79-100); MONO % 3 % (0-9); NEUT % 66 % (31-73); PLATELET COUNT 228 x10^3/uL (140-400); RED BLOOD COUNT 3.93 x10^6/uL (3.50-5.40); RED CELL DISTRIBUTION WIDTH 17.4 % (11.5-14.5); WHITE BLOOD COUNT 5.4 x10^3/uL (4.0-11.0)
[2016-10-04 06:31] LABS: CALCIUM 9.4 mg/dL (8.5-10.1); CREATININE 0.7 mg/dL (0.6-1.0); GFR 120.6; POTASSIUM 3.8 mmol/L (3.5-5.1)
[2016-10-04 07:00] VITALS: BP 125/79
[2016-10-04] MEDS ORDERED: MAGNESIUM SULFATE 2GM 50 ML IV ONE (09:30)
--- NOTE | 2016-10-04 10:31 | PDOC ---
PROGRESS NOTES Chief Complaint Chief Complaint 1. ABd pain, emesis recent lap manuela for biliary dyskinesia 2. Hypokalemia, critical sec to emesis 3. Positive cannabinoids in the system 4. SIRS POA, no sepsis or organ dysfcn 5. MIld to mod PCM History of Present Illness History of Present Illness feels improved, would like some coffee HIDA scan results neg for bile leak Nausea and pain better cont IVF try clear liquids Vitals Vitals Vital Signs Date Time Temp Pulse Resp B/P Pulse Ox O2 Delivery O2 Flow Rate FiO2 10/04/16 07:30 Room Air 10/04/16 07:00 97.9 56 18 125/79 100 97.9 Physical Exam General: Alert, Oriented X3, Cooperative, No acute distress, Other (anxious) Lungs: Clear, Other Abdomen: Normal bowel sounds, Soft, No tenderness, No hepatosplenomegaly, No masses, Other (tender to palpation, epigastric and r sided area, no rebound; lap wounds healing well) Extremities: No clubbing, No cyanosis, No edema, Normal pulses, No tenderness/ swelling Skin: No rashes, No breakdown, No significant lesion Labs LABS Laboratory Tests Test 10/03/16 13:05 10/03/16 16:36 10/04/16 05:40 Bedside Troponin I 0.01ng/ml (<0.08) Glucose (Fingerstick) 98mg/dL (70-99) White Blood Count 5.4x10^3/uL (4.0-11.0) Red Blood Count 3.93x10^6/uL (3.50-5.40) Hemoglobin 10.2g/dL (12.0-15.5) Hematocrit 32.5% (36.0-47.0) Mean Corpuscular Volume 83fL (79-100) Mean Corpuscular Hemoglobin 26pg (25-35) Mean Corpuscular Hemoglobin Concent 32g/dL (31-37) Red Cell Distribution Width 17.4% (11.5-14.5) Platelet Count 228x10^3/uL (140-400) Neutrophils (%) (Auto) 66% (31-73) Lymphocytes (%) (Auto) 30% (24-48) Monocytes (%) (Auto) 3% (0-9) Eosinophils (%) (Auto) 0% (0-3) Basophils (%) (Auto) 1% (0-3) Neutrophils # (Auto) 3.5x10^3uL (1.8-7.7) Lymphocytes # (Auto) 1.6x10^3/uL (1.0-4.8) Monocytes # (Auto) 0.2x10^3/uL (0.0-1.1) Eosinophils # (Auto) 0.0x10^3/uL (0.0-0.7) Basophils # (Auto) 0.0x10^3/uL (0.0-0.2) Sodium Level 139mmol/L (136-145) Potassium Level 3.8mmol/L (3.5-5.1) Chloride Level 103mmol/L (98-107) Carbon Dioxide Level 25mmol/L (21-32) Anion Gap 11 (6-14) Blood Urea Nitrogen 4mg/dL (7-20) Creatinine 0.7mg/dL (0.6-1.0) Estimated GFR (Cockcroft-Gault) 120.6 Glucose Level 86mg/dL (70-99) Calcium Level 9.4mg/dL (8.5-10.1) Magnesium Level 1.7mg/dL (1.8-2.4) Review of Systems Review of Systems some nausea pain 0-1 OOB Assessment and Plan Assessmemt and Plan Problems Medical Problems: (1) Abdominal pain Status: Acute (2) Abdominal pain Status: Acute Problems: Comment Review of Relevant I have reviewed the following items ratna (where applicable) has been applied. Labs Laboratory Tests Test 10/03/16 07:03 10/03/16 07:15 10/03/16 07:37 10/03/16 09:41 Bedside Urine HCG, Qualitative Hcg negative (Negative) Sodium Level 143mmol/L (136-145) Potassium Level 2.7mmol/L (3.5-5.1) Chloride Level 103mmol/L (98-107) Carbon Dioxide Level 27mmol/L (21-32) Anion Gap 13 (6-14) Blood Urea Nitrogen 5mg/dL (7-20) Creatinine 0.8mg/dL (0.6-1.0) Estimated GFR (Cockcroft-Gault) 103.3 BUN/Creatinine Ratio 6 (6-20) Glucose Level 99mg/dL (70-99) Calcium Level 9.7mg/dL (8.5-10.1) Total Bilirubin 0.3mg/dL (0.2-1.0) Aspartate Amino Transf (AST/SGOT) 25U/L (15-37) Alanine Aminotransferase (ALT/SGPT) 47U/L (14-59) Alkaline Phosphatase 88U/L (46-116) Total Protein 8.7g/dL (6.4-8.2) Albumin 4.1g/dL (3.4-5.0) Albumin/Globulin Ratio 0.9 (1.0-1.7) Lipase 97U/L (73-393) White Blood Count 6.9x10^3/uL (4.0-11.0) Red Blood Count 3.99x10^6/uL (3.50-5.40) Hemoglobin 10.5g/dL (12.0-15.5) Hematocrit 34.2% (36.0-47.0) Mean Corpuscular Volume 86fL (79-100) Mean Corpuscular Hemoglobin 26pg (25-35) Mean Corpuscular Hemoglobin Concent 31g/dL (31-37) Red Cell Distribution Width 17.4% (11.5-14.5) Platelet Count 279x10^3/uL (140-400) Neutrophils (%) (Auto) 79% (31-73) Lymphocytes (%) (Auto) 14% (24-48) Monocytes (%) (Auto) 6% (0-9) Eosinophils (%) (Auto) 0% (0-3) Basophils (%) (Auto) 0% (0-3) Neutrophils # (Auto) 5.5x10^3uL (1.8-7.7) Lymphocytes # (Auto) 1.0x10^3/uL (1.0-4.8) Monocytes # (Auto) 0.4x10^3/uL (0.0-1.1) Eosinophils # (Auto) 0.0x10^3/uL (0.0-0.7) Basophils # (Auto) 0.0x10^3/uL (0.0-0.2) Urine Collection Type Unknown Urine Color Red Urine Clarity Cloudy Urine pH 8.0 Urine Specific [place] 1.020 Urine Protein 30mg/dL (NEG-TRACE) Urine Glucose (UA) Negativemg/dL (NEG) Urine Ketones (Stick) Negativemg/dL (NEG) Urine Blood Large (NEG) Urine Nitrite Negative (NEG) Urine Bilirubin Negative (NEG) Urine Urobilinogen Dipstick 0.2mg/dL (0.2 mg/dL) Urine Leukocyte Esterase Small (NEG) Urine RBC Tntc/HPF (0-2) Urine WBC 1-4/HPF (0-4) Urine Squamous Epithelial Cells Few/LPF Urine Bacteria Few/HPF (0-FEW) Urine Mucus Slight/LPF Test 10/03/16 13:05 10/03/16 16:36 10/04/16 05:40 Bedside Troponin I 0.01ng/ml (<0.08) Glucose (Fingerstick) 98mg/dL (70-99) White Blood Count 5.4x10^3/uL (4.0-11.0) Red Blood Count 3.93x10^6/uL (3.50-5.40) Hemoglobin 10.2g/dL (12.0-15.5) Hematocrit 32.5% (36.0-47.0) Mean Corpuscular Volume 83fL (79-100) Mean Corpuscular Hemoglobin 26pg (25-35) Mean Corpuscular Hemoglobin Concent 32g/dL (31-37) Red Cell Distribution Width 17.4% (11.5-14.5) Platelet Count 228x10^3/uL (140-400) Neutrophils (%) (Auto) 66% (31-73) Lymphocytes (%) (Auto) 30% (24-48) Monocytes (%) (Auto) 3% (0-9) Eosinophils (%) (Auto) 0% (0-3) Basophils (%) (Auto) 1% (0-3) Neutrophils # (Auto) 3.5x10^3uL (1.8-7.7) Lymphocytes # (Auto) 1.6x10^3/uL (1.0-4.8) Monocytes # (Auto) 0.2x10^3/uL (0.0-1.1) Eosinophils # (Auto) 0.0x10^3/uL (0.0-0.7) Basophils # (Auto) 0.0x10^3/uL (0.0-0.2) Sodium Level 139mmol/L (136-145) Potassium Level 3.8mmol/L (3.5-5.1) Chloride Level 103mmol/L (98-107) Carbon Dioxide Level 25mmol/L (21-32) Anion Gap 11 (6-14) Blood Urea Nitrogen 4mg/dL (7-20) Creatinine 0.7mg/dL (0.6-1.0) Estimated GFR (Cockcroft-Gault) 120.6 Glucose Level 86mg/dL (70-99) Calcium Level 9.4mg/dL (8.5-10.1) Magnesium Level 1.7mg/dL (1.8-2.4) Laboratory Tests Test 10/03/16 13:05 10/03/16 16:36 10/04/16 05:40 Bedside Troponin I 0.01ng/ml (<0.08) Glucose (Fingerstick) 98mg/dL (70-99) White Blood Count 5.4x10^3/uL (4.0-11.0) Red Blood Count 3.93x10^6/uL (3.50-5.40) Hemoglobin 10.2g/dL (12.0-15.5) Hematocrit 32.5% (36.0-47.0) Mean Corpuscular Volume 83fL (79-100) Mean Corpuscular Hemoglobin 26pg (25-35) Mean Corpuscular Hemoglobin Concent 32g/dL (31-37) Red Cell Distribution Width 17.4% (11.5-14.5) Platelet Count 228x10^3/uL (140-400) Neutrophils (%) (Auto) 66% (31-73) Lymphocytes (%) (Auto) 30% (24-48) Monocytes (%) (Auto) 3% (0-9) Eosinophils (%) (Auto) 0% (0-3) Basophils (%) (Auto) 1% (0-3) Neutrophils # (Auto) 3.5x10^3uL (1.8-7.7) Lymphocytes # (Auto) 1.6x10^3/uL (1.0-4.8) Monocytes # (Auto) 0.2x10^3/uL (0.0-1.1) Eosinophils # (Auto) 0.0x10^3/uL (0.0-0.7) Basophils # (Auto) 0.0x10^3/uL (0.0-0.2) Sodium Level 139mmol/L (136-145) Potassium Level 3.8mmol/L (3.5-5.1) Chloride Level 103mmol/L (98-107) Carbon Dioxide Level 25mmol/L (21-32) Anion Gap 11 (6-14) Blood Urea Nitrogen 4mg/dL (7-20) Creatinine 0.7mg/dL (0.6-1.0) Estimated GFR (Cockcroft-Gault) 120.6 Glucose Level 86mg/dL (70-99) Calcium Level 9.4mg/dL (8.5-10.1) Magnesium Level 1.7mg/dL (1.8-2.4) Medications Current Medications Fentanyl Citrate (Fentanyl 2ml Vial) 25 mcg 1X ONCE IV Last administered on 07:19; Start 10/03/16 at 07:00; Stop 10/03/16 at 07:05; Status DC Ondansetron HCl (Zofran) 4 mg 1X ONCE IV Last administered on 10/03/16 07:19 ; Start 10/03/16 at 07:00; Stop 10/03/16 at 07:05; Status DC Fentanyl Citrate 50 mcg 50 mcg PRN Q30MIN PRN IV SEVERE PAIN Last administered on 10/03/16 11:06; Start 10/03/16 at 07:00; Stop 10/03/16 at 11:07; Status DC Sodium Chloride 1,000 ml @ 1,000 mls/hr 1X ONCE IV Last administered on 07:19; Start 10/03/16 at 07:15; Stop 10/03/16 at 08:14; Status DC Potassium Chloride (KCl Premix 10meq) 100 ml @ 100 mls/hr Q1H IV Last administered on 10/03/16 11:06; Start 10/03/16 at 08:30; Stop 10/03/16 at 10:29 ; Status DC Iohexol (Omnipaque 300 Mg/ml) 75 ml 1X ONCE IV Last administered on 10/03/16 09:22; Start 10/03/16 at 08:15; Stop 10/03/16 at 08:16; Status DC Info (Do NOT chart on this entry -- for MONITORING) 1 each PRN DAILY PRN MC SEE COMMENTS; Start 10/03/16 at 08:15; Stop 10/05/16 at 08:14 Metoclopramide HCl (Reglan) 10 mg 1X ONCE IV Last administered on 10/03/16 08 :37; Start 10/03/16 at 08:45; Stop 10/03/16 at 08:46; Status DC Metoclopramide HCl (Reglan) 10 mg STK-MED ONCE .ROUTE ; Start 10/03/16 at 08:36 ; Stop 10/03/16 at 08:37; Status DC Ondansetron HCl (Zofran) 4 mg PRN Q8HRS PRN IV NAUSEA/VOMITING Last administered on 10/03/16 13:13; Start 10/03/16 at 11:30; Stop 10/03/16 at 14:09 ; Status DC Morphine Sulfate 2 mg 2 mg PRN Q2HR PRN IV PAIN Last administered on 10/04/16 06:18; Start 10/03/16 at 11:30; Stop 10/04/16 at 11:29 Sodium Chloride (Iv Sodium Chloride 0.9% 1000ml Bag) 1,000 ml @ 125 mls/hr Q8H IV Last administered on 10/04/16 03:01; Start 10/03/16 at 11:19; Stop at 11:18 Ondansetron HCl (Zofran) 4 mg PRN Q6HRS PRN IV NAUSEA/VOMITING Last administered on 10/04/16 03:01; Start 10/03/16 at 14:07 Oxycodone/ Acetaminophen (Percocet 5/325) 1 tab TID PO ; Start 10/03/16 at 16:00 Tobramycin Sulfate (Tobrex Ophth Soln) 1 drop Q4HRS OD ; Start 10/03/16 at 16:00 ; Stop 10/03/16 at 16:36; Status DC Tramadol HCl (Ultram) 50 mg PRN Q6HRS PRN PO PAIN; Start 10/03/16 at 14:15 Non-Formulary Medication 1 tab BID PO ; Start 10/03/16 at 21:00; Status UNV Ciprofloxacin (Cipro) 500 mg BID PO ; Start 10/03/16 at 21:00; Stop 10/03/16 at 21:00; Status DC Non-Formulary Medication 1 tab ONCE PO ; Start 10/03/16 at 14:15; Status UNV Promethazine HCl (Phenergan) 25 mg PRN Q6HRS PRN PO NAUSEA/VOMITING; Start at 15:45 Prochlorperazine Edisylate (Compazine) 10 mg STK-MED ONCE .ROUTE ; Start at 14:21; Stop 10/03/16 at 14:22; Status DC Prochlorperazine Edisylate (Compazine) 10 mg 1X ONCE IV Last administered on 14:28; Start 10/03/16 at 14:30; Stop 10/03/16 at 15:32; Status DC Morphine Sulfate 2 mg 1X ONCE IV Last administered on 10/03/16 14:28; Start 10/03/16 at 14:30; Stop 10/03/16 at 15:32; Status DC Prochlorperazine Edisylate 10 mg 10 mg PRN Q6HRS PRN IV NAUSEA/VOMITING; Start 10/03/16 at 15:15 Promethazine HCl 12.5 mg/Sodium Chloride 50.5 ml @ 151.5 mls/ hr PRN Q6HRS PRN IV NAUSEA/VOMITING Last administered on 10/03/16 22:23; Start 10/03/16 at 15:15 Potassium Chloride 100 ml @ 100 mls/hr Q1H IV Last administered on 10/03/16 19:39; Start 10/03/16 at 16:00; Stop 10/03/16 at 19:59; Status DC Magnesium Sulfate/ Dextrose (Magnesium Sulfate PREMIX 2GM) 50 ml @ 25 mls/hr 1X ONCE IV ; Start 10/04/16 at 09:30; Stop 10/04/16 at 11:29 Active Scripts Active Percocet 5-325 Mg Tablet (Oxycodone/Acetaminophen) 1 Each Tablet 1-2 Tab PO Q4- 6HRS Ultram (Tramadol Hcl) 50 Mg Tablet 50 Mg PO Q6H PRN Promethazine Hcl 25 Mg Tablet 25 Mg PO Q6H PRN Vitals/I & O Vital Sign - Last 24 Hours 10/03/16 10/03/16 10/03/16 10/03/16 11:10 11:44 13:00 14:40 Pulse 58 54 60 Resp 18 18 18 B/P 152/86 147/79 165/92 Pulse Ox 100 100 100 O2 Delivery Room Air Room Air Room Air 10/03/16 10/03/16 10/03/16 10/03/16 15:20 17:22 19:00 19:28 Temp 98.8 98.5 98.8 98.5 Pulse 56 78 Resp 16 20 16 B/P 147/82 131/99 Pulse Ox 100 100 O2 Delivery Room Air Room Air Room Air Room Air 10/03/16 10/03/16 10/03/16 10/04/16 20:00 21:49 23:00 03:00 Temp 98.1 98.4 98.1 98.4 Pulse 55 55 Resp 16 18 20 B/P 137/79 145/90 Pulse Ox 97 100 O2 Delivery Room Air Room Air Room Air Room Air 10/04/16 10/04/16 10/04/16 10/04/16 03:01 06:18 06:48 07:00 Temp 97.9 97.9 Pulse 56 Resp 16 16 18 B/P 125/79 Pulse Ox 100 O2 Delivery Room Air Room Air Room Air Room Air 10/04/16 07:30 O2 Delivery Room Air Intake and Output 10/03/16 10/03/16 10/04/16 15:00 23:00 07:00 Intake Total 1200 ml 0 ml Balance 1200 ml 0 ml GIANNI FERRO MD Oct 04, 2016 10:31
[2016-10-04 11:00] VITALS: BP 134/88
[2016-10-04] MEDS: OXYCODONE/APAP 5/325 TABLET. PO SCH ×3 (11:11→20:58)
--- NOTE | 2016-10-04 11:23 | PDOC ---
SURGICAL PROGRESS NOTE Subjective starting clear liquids still having pain, mostly incisional--although improved from admission no n/v Vital Signs Vital Signs Date Time Temp Pulse Resp B/P Pulse Ox O2 Delivery O2 Flow Rate FiO2 10/04/16 11:11 Room Air 10/04/16 11:00 97.9 64 18 134/88 100 97.9 I&O Intake and Output 10/04/16 07:00 Intake Total 1200 ml Balance 1200 ml Intake Oral 0 ml IV Total 1200 ml # Voids 4 General: Alert, Oriented X3, Cooperative, No acute distress Abdomen: Soft, Other (incisional pain, epigastric pain ) Labs Laboratory Tests Test 10/03/16 07:03 10/03/16 07:15 10/03/16 07:37 10/03/16 09:41 Bedside Urine HCG, Qualitative Hcg negative (Negative) Sodium Level 143mmol/L (136-145) Potassium Level 2.7mmol/L (3.5-5.1) Chloride Level 103mmol/L (98-107) Carbon Dioxide Level 27mmol/L (21-32) Anion Gap 13 (6-14) Blood Urea Nitrogen 5mg/dL (7-20) Creatinine 0.8mg/dL (0.6-1.0) Estimated GFR (Cockcroft-Gault) 103.3 BUN/Creatinine Ratio 6 (6-20) Glucose Level 99mg/dL (70-99) Calcium Level 9.7mg/dL (8.5-10.1) Total Bilirubin 0.3mg/dL (0.2-1.0) Aspartate Amino Transf (AST/SGOT) 25U/L (15-37) Alanine Aminotransferase (ALT/SGPT) 47U/L (14-59) Alkaline Phosphatase 88U/L (46-116) Total Protein 8.7g/dL (6.4-8.2) Albumin 4.1g/dL (3.4-5.0) Albumin/Globulin Ratio 0.9 (1.0-1.7) Lipase 97U/L (73-393) White Blood Count 6.9x10^3/uL (4.0-11.0) Red Blood Count 3.99x10^6/uL (3.50-5.40) Hemoglobin 10.5g/dL (12.0-15.5) Hematocrit 34.2% (36.0-47.0) Mean Corpuscular Volume 86fL (79-100) Mean Corpuscular Hemoglobin 26pg (25-35) Mean Corpuscular Hemoglobin Concent 31g/dL (31-37) Red Cell Distribution Width 17.4% (11.5-14.5) Platelet Count 279x10^3/uL (140-400) Neutrophils (%) (Auto) 79% (31-73) Lymphocytes (%) (Auto) 14% (24-48) Monocytes (%) (Auto) 6% (0-9) Eosinophils (%) (Auto) 0% (0-3) Basophils (%) (Auto) 0% (0-3) Neutrophils # (Auto) 5.5x10^3uL (1.8-7.7) Lymphocytes # (Auto) 1.0x10^3/uL (1.0-4.8) Monocytes # (Auto) 0.4x10^3/uL (0.0-1.1) Eosinophils # (Auto) 0.0x10^3/uL (0.0-0.7) Basophils # (Auto) 0.0x10^3/uL (0.0-0.2) Urine Collection Type Unknown Urine Color Red Urine Clarity Cloudy Urine pH 8.0 Urine Specific [place] 1.020 Urine Protein 30mg/dL (NEG-TRACE) Urine Glucose (UA) Negativemg/dL (NEG) Urine Ketones (Stick) Negativemg/dL (NEG) Urine Blood Large (NEG) Urine Nitrite Negative (NEG) Urine Bilirubin Negative (NEG) Urine Urobilinogen Dipstick 0.2mg/dL (0.2 mg/dL) Urine Leukocyte Esterase Small (NEG) Urine RBC Tntc/HPF (0-2) Urine WBC 1-4/HPF (0-4) Urine Squamous Epithelial Cells Few/LPF Urine Bacteria Few/HPF (0-FEW) Urine Mucus Slight/LPF Test 10/03/16 13:05 10/03/16 16:36 10/04/16 05:40 Bedside Troponin I 0.01ng/ml (<0.08) Glucose (Fingerstick) 98mg/dL (70-99) White Blood Count 5.4x10^3/uL (4.0-11.0) Red Blood Count 3.93x10^6/uL (3.50-5.40) Hemoglobin 10.2g/dL (12.0-15.5) Hematocrit 32.5% (36.0-47.0) Mean Corpuscular Volume 83fL (79-100) Mean Corpuscular Hemoglobin 26pg (25-35) Mean Corpuscular Hemoglobin Concent 32g/dL (31-37) Red Cell Distribution Width 17.4% (11.5-14.5) Platelet Count 228x10^3/uL (140-400) Neutrophils (%) (Auto) 66% (31-73) Lymphocytes (%) (Auto) 30% (24-48) Monocytes (%) (Auto) 3% (0-9) Eosinophils (%) (Auto) 0% (0-3) Basophils (%) (Auto) 1% (0-3) Neutrophils # (Auto) 3.5x10^3uL (1.8-7.7) Lymphocytes # (Auto) 1.6x10^3/uL (1.0-4.8) Monocytes # (Auto) 0.2x10^3/uL (0.0-1.1) Eosinophils # (Auto) 0.0x10^3/uL (0.0-0.7) Basophils # (Auto) 0.0x10^3/uL (0.0-0.2) Sodium Level 139mmol/L (136-145) Potassium Level 3.8mmol/L (3.5-5.1) Chloride Level 103mmol/L (98-107) Carbon Dioxide Level 25mmol/L (21-32) Anion Gap 11 (6-14) Blood Urea Nitrogen 4mg/dL (7-20) Creatinine 0.7mg/dL (0.6-1.0) Estimated GFR (Cockcroft-Gault) 120.6 Glucose Level 86mg/dL (70-99) Calcium Level 9.4mg/dL (8.5-10.1) Magnesium Level 1.7mg/dL (1.8-2.4) Laboratory Tests Test 10/03/16 13:05 10/03/16 16:36 10/04/16 05:40 Bedside Troponin I 0.01ng/ml (<0.08) Glucose (Fingerstick) 98mg/dL (70-99) White Blood Count 5.4x10^3/uL (4.0-11.0) Red Blood Count 3.93x10^6/uL (3.50-5.40) Hemoglobin 10.2g/dL (12.0-15.5) Hematocrit 32.5% (36.0-47.0) Mean Corpuscular Volume 83fL (79-100) Mean Corpuscular Hemoglobin 26pg (25-35) Mean Corpuscular Hemoglobin Concent 32g/dL (31-37) Red Cell Distribution Width 17.4% (11.5-14.5) Platelet Count 228x10^3/uL (140-400) Neutrophils (%) (Auto) 66% (31-73) Lymphocytes (%) (Auto) 30% (24-48) Monocytes (%) (Auto) 3% (0-9) Eosinophils (%) (Auto) 0% (0-3) Basophils (%) (Auto) 1% (0-3) Neutrophils # (Auto) 3.5x10^3uL (1.8-7.7) Lymphocytes # (Auto) 1.6x10^3/uL (1.0-4.8) Monocytes # (Auto) 0.2x10^3/uL (0.0-1.1) Eosinophils # (Auto) 0.0x10^3/uL (0.0-0.7) Basophils # (Auto) 0.0x10^3/uL (0.0-0.2) Sodium Level 139mmol/L (136-145) Potassium Level 3.8mmol/L (3.5-5.1) Chloride Level 103mmol/L (98-107) Carbon Dioxide Level 25mmol/L (21-32) Anion Gap 11 (6-14) Blood Urea Nitrogen 4mg/dL (7-20) Creatinine 0.7mg/dL (0.6-1.0) Estimated GFR (Cockcroft-Gault) 120.6 Glucose Level 86mg/dL (70-99) Calcium Level 9.4mg/dL (8.5-10.1) Magnesium Level 1.7mg/dL (1.8-2.4) Problem List Problems Medical Problems: (1) Abdominal pain Status: Acute (2) Abdominal pain Status: Acute Assessment/Plan abdominal pain, s/p manuela no bile leak mag low, electrolyte management clears, advance as tolerated work toward dc home Problems: SHIRA ANAYA [employer]ING FINISH[employer] Oct 04, 2016 11:23
[2016-10-04 15:00] VITALS: BP 120/80
[2016-10-04 19:51] VITALS: BP 118/75
[2016-10-04 23:06] VITALS: BP 118/67
[2016-10-05 04:06] VITALS: BP 140/89
[2016-10-05] MEDS: ONDANSETRON PF 4 MG/2 ML VIAL. IV PRN (07:11)
[2016-10-05] MEDS: OXYCODONE/APAP 5/325 TABLET. PO SCH (08:21)
[2016-10-05 10:45] VITALS: BP_SYST 116; BP_SYST 140; BP_DIAS 76; BP_DIAS 81
[2016-10-05] MEDS ORDERED: PROMETHAZINE 25 MG SUPP.RECT. PR PRN (11:15)
[2016-10-05] MEDS ORDERED: PROM25SU32 PR (11:19)
[2016-10-05] MEDS ORDERED: TRAM-29 PO (11:19)
[2016-10-05 11:43] VITALS: BP 129/79
--- NOTE | 2016-10-05 11:46 | PDOC ---
SURGICAL PROGRESS NOTE Subjective tolerating diet incisional pain ready to go home Vital Signs Vital Signs Date Time Temp Pulse Resp B/P Pulse Ox O2 Delivery O2 Flow Rate FiO2 10/05/16 10:45 98.6 87 18 116/81 100 Room Air 98.6 I&O Intake and Output 10/05/16 07:00 Intake Total 600 ml Balance 600 ml Intake Oral 600 ml # Voids 2 General: Alert, Oriented X3, Cooperative, No acute distress Abdomen: Soft, Other (ND, lap sites c/d/i, healing, no signs of infection) Labs Laboratory Tests Test 10/03/16 13:05 10/03/16 16:36 10/04/16 05:40 Bedside Troponin I 0.01ng/ml (<0.08) Glucose (Fingerstick) 98mg/dL (70-99) White Blood Count 5.4x10^3/uL (4.0-11.0) Red Blood Count 3.93x10^6/uL (3.50-5.40) Hemoglobin 10.2g/dL (12.0-15.5) Hematocrit 32.5% (36.0-47.0) Mean Corpuscular Volume 83fL (79-100) Mean Corpuscular Hemoglobin 26pg (25-35) Mean Corpuscular Hemoglobin Concent 32g/dL (31-37) Red Cell Distribution Width 17.4% (11.5-14.5) Platelet Count 228x10^3/uL (140-400) Neutrophils (%) (Auto) 66% (31-73) Lymphocytes (%) (Auto) 30% (24-48) Monocytes (%) (Auto) 3% (0-9) Eosinophils (%) (Auto) 0% (0-3) Basophils (%) (Auto) 1% (0-3) Neutrophils # (Auto) 3.5x10^3uL (1.8-7.7) Lymphocytes # (Auto) 1.6x10^3/uL (1.0-4.8) Monocytes # (Auto) 0.2x10^3/uL (0.0-1.1) Eosinophils # (Auto) 0.0x10^3/uL (0.0-0.7) Basophils # (Auto) 0.0x10^3/uL (0.0-0.2) Sodium Level 139mmol/L (136-145) Potassium Level 3.8mmol/L (3.5-5.1) Chloride Level 103mmol/L (98-107) Carbon Dioxide Level 25mmol/L (21-32) Anion Gap 11 (6-14) Blood Urea Nitrogen 4mg/dL (7-20) Creatinine 0.7mg/dL (0.6-1.0) Estimated GFR (Cockcroft-Gault) 120.6 Glucose Level 86mg/dL (70-99) Calcium Level 9.4mg/dL (8.5-10.1) Magnesium Level 1.7mg/dL (1.8-2.4) Problem List Problems Medical Problems: (1) Abdominal pain Status: Acute (2) Abdominal pain Status: Acute Assessment/Plan improved [place] home, FU with Dr Blake 1 week Problems: SHIRA ANAYA APRN Oct 05, 2016 11:46
--- NOTE | 2016-10-05 13:30 | PDOC3 ---
Discharge Summary [facility] Date of Admission: Oct 03, 2016 Discharge Date: Oct 05, 2016 Admitting Diagnosis 1. ABd pain, emesis recent lap manuela for biliary dyskinesia 2. Hypokalemia, critical sec to emesis 3. Positive cannabinoids in the system 4. SIRS POA, no sepsis or organ dysfcn 5. MIld to mod PCM History of Present Illness History of Present Illness feels improved, would like some coffee HIDA scan results neg for bile leak Nausea and pain better cont IVF try clear liquids Vitals Vitals Vital Signs Date Time Temp Pulse Resp B/P Pulse Ox O2 Delivery O2 Flow Rate FiO2 10/04/16 07:30 Room Air 10/04/16 07:00 97.9 56 18 125/79 100 97.9 Physical Exam Problems: Final Diagnosis CONSULTS sx Brief Hospital Course Ms. Rao is a 26 old F, had lap manuela on 09/27, came for abd pain, CT unremarkable. pt improved with diet holding, now tolerating full liquid. dc home General: Alert, Oriented X3, Cooperative, No acute distress, Other (anxious) Lungs: Clear, Other Abdomen: Normal bowel sounds, Soft, No tenderness, No hepatosplenomegaly, No masses, Other (tender to palpation, epigastric and r sided area, no rebound; lap wounds healing well) Extremities: No clubbing, No cyanosis, No edema, Normal pulses, No tenderness/ swelling Skin: No rashes, No breakdown, No significant lesion Patient History: Patient reports no known family medical history. Problems: Disposition home CONDITION AT DISCHARGE: Improved Diet regular Scheduled Oxycodone/Apap 5-325 (Percocet 5-325 Mg Tablet) 1-2 TAB PO Q4-6HRS Scheduled PRN Promethazine HCl (Phenergan) 25 MG VA PRN Q6HRS PRN PRN NAUSEA/VOMITING Promethazine Hcl (Promethazine Hcl) 25 MG PO Q6H PRN PRN NAUSEA/VOMITING Tramadol Hcl (Ultram) 50 MG PO Q6H PRN PRN PAIN Discontinued Medications Hydrocodone/Apap 5-325 ([place] 5-325 Tablet) 1 TAB PO PRN Q6HRS PRN PRN PAIN Hydrocodone/Apap 5-325 ([place] 5-325 Tablet) 1 TAB PO PRN Q6HRS PRN PRN PAIN Hydrocodone/Apap 5-325 ([place] 5-325 Tablet) 1-2 TAB PO Q4-6HRS Info (No Known Medications Prior To Admisstion) 1 EACH MC (Reported) Follow Up sx in 1 week SUZANNE GUZMAN MD Oct 05, 2016 13:30
== END 2016-10-05 12:40 | disposition home or self-care (01) ==
LOC: ER 06:35 → 4 NORTH 11:09
PROVIDERS: ADMIT Internal Medicine; ATTEND Internal Medicine
DX: R10.9 Unspecified abdominal pain (principal); R11.10 Vomiting, unspecified; E87.6 Hypokalemia; R65.10 Systemic inflammatory response syndrome (SIRS) of non-infectious origin without acute organ dysfunction; K51.90 Ulcerative colitis, unspecified, without complications; F11.90 Opioid use, unspecified, uncomplicated; F12.90 Cannabis use, unspecified, uncomplicated
CPT/HCPCS: 36415; 74177; 78226; 80048; 80053; 81001; 81025; 82947; 83690; 83735; 84484; 85027; 93005; 96361; 96365; 96366; 96367; 96375; 96376; 99285; A9537; G0378; J0780; J2270; J2405; J2550; J2765; J3010; J3480; J7030; J7060; Q9967; 96374; G0379

== ENCOUNTER 2016-12-07 19:19 | Emergency (ER) | payer OTHER ==
[~2016-12-07 19:19] MED LIST changes: +PROM25SU32 PR; -TRAM-29 PO; +TRAM-48 PO
[2016-12-07 19:36] VITALS: BP 138/63
[2016-12-07 19:49] LABS: BILIRUBIN,URINE NEGATIVE (NEG); GLUCOSE,URINE NEGATIVE (NEG); NITRITE,URINE POSITIVE (NEG); PROTEIN,URINE NEGATIVE (NEG-TRACE); UROBILINOGEN,URINE 0.2 mg/dL (0.2 mg/dL)
[2016-12-07 19:56] LABS: BACTERIA,URINE MANY /HPF (0-FEW); RBC,URINE 0 /HPF (0-2); SQUAMOUS EPITHELIAL CELL,UR FEW /LPF
[2016-12-07] MEDS ORDERED: NITR100C62 PO (20:23)
--- NOTE | 2016-12-07 20:23 | PHYS DOC ---
Past Medical History Past Medical History: No Pertinent History Additional Past Medical Histor: ULCERATIVE COLITIS, Dental Caries Past Surgical History: Cholecystectomy Additional Past Surgical Histo: X 3 Alcohol Use: None Drug Use: None Adult General Chief Complaint Chief Complaint: SEXUALLY TRANSMITTED DISEASE [facility] HPI Patient is a 26 year old female presents to the emergency department stating that her boyfriend told her that he was positive for gonorrhea. Patient presents to the emergency department denying any vaginal discharge. She denies any abdominal pain or discomfort. Denies any fever, chills or nausea vomiting. Patient states last menstrual period was earlier this month. Patient does state that she is sexually active with one partner without protection. Review of Systems Review of Systems Constitutional: Denies fever or chills [] Eyes: Denies change in visual acuity, redness, or eye pain [] HENT: Denies nasal congestion or sore throat [] Respiratory: Denies cough or shortness of breath [] Cardiovascular: No additional information not addressed in HPI [] GI: Denies abdominal pain, nausea, vomiting, bloody stools or diarrhea [] : Denies dysuria or hematuria [] Musculoskeletal: Denies back pain or joint pain [] Integument: Denies rash or skin lesions [] Neurologic: Denies headache, focal weakness or sensory changes [] Endocrine: Denies polyuria or polydipsia [] Patient is requesting to be checked for STDs. Current Medications Current Medications Current Medications Medications (Trade) Dose Ordered Sig/Sharon Start Time Stop Time Status Last Admin Dose Admin Azithromycin (Zithromax) 1,000 mg 1X ONCE 12/07/16 20:30 12/07/16 20:31 UNV Ceftriaxone Sodium (Rocephin Im) 250 mg 1X ONCE 12/07/16 20:30 12/07/16 20:31 UNV Metronidazole (Flagyl) 2,000 mg 1X ONCE 12/07/16 20:30 12/07/16 20:31 UNV Allergies Allergies Allergies Coded Allergies Type Severity Reaction Last Updated Verified No Known Drug Allergies 09/10/13 No Physical Exam Physical Exam Constitutional: Well developed, well nourished, no acute distress, non-toxic appearance. [] HENT: Normocephalic, atraumatic, bilateral external ears normal, oropharynx moist, no oral exudates, nose normal. [] Eyes: PERRLA, EOMI, conjunctiva normal, no discharge. [] Neck: Normal range of motion, no tenderness, supple, no stridor. [] Cardiovascular: [place] warm and dry Lungs & Thorax: No respiratory distress noted Skin: Warm, dry, no erythema, no rash. [] Back: No tenderness Extremities: No tenderness, no cyanosis, no clubbing, ROM intact, no edema. [] Neurologic: Alert and oriented X 3, normal motor function, normal sensory function, no focal deficits noted. [] Psychologic: Affect normal, judgement normal, mood normal. [] Pelvic exam: Speculum exam with white vaginal discharge noted. Manual exam patient with right adnexal tenderness noted no CMT no left adnexal tenderness. Current Patient Data Vital Signs Vital Signs Date Time Temp Pulse Resp B/P (MAP) Pulse Ox O2 Delivery O2 Flow Rate FiO2 12/07/16 19:36 99.0 100 16 138/63 (88) 100 Room Air 99.0 Lab Values Laboratory Tests Test 12/07/16 18:40 12/07/16 19:40 POC Urine HCG, Qualitative Hcg negative (Negative) Urine Collection Type Unknown Urine Color Yellow Urine Clarity Clear Urine pH 7.0 Urine Specific [place] 1.020 Urine Protein Negative mg/dL (NEG-TRACE) Urine Glucose (UA) Negative mg/dL (NEG) Urine Ketones (Stick) Negative mg/dL (NEG) Urine Blood Negative (NEG) Urine Nitrite Positive (NEG) Urine Bilirubin Negative (NEG) Urine Urobilinogen Dipstick 0.2 mg/dL (0.2 mg/dL) Urine Leukocyte Esterase Trace (NEG) Urine RBC 0 /HPF (0-2) Urine WBC 1-4 /HPF (0-4) Urine Squamous Epithelial Cells Few /LPF Urine Bacteria Many /HPF (0-FEW) Urine Mucus Mod /LPF Microbiology 12/07/16 Wet Prep - Final, Complete EKG EKG [] Radiology/Procedures Radiology/Procedures [] Course & Med Decision Making Course & Med Decision Making Pertinent Labs and Imaging studies reviewed. (See chart for details) Patient's urine was positive for urinary tract infection. Patient was provided with Rocephin and Zithromax and Flagyl here in the emergency department. Patient 's wet prep was positive for bacterial vaginosis. She'll be placed on Flagyl for the next week as well. She'll be discharged home with Macrobid for urinary tract infection with recommendations to drink plenty of fluids such as water and cranberry juice. Avoid cranberry juice cocktail carbonate beverages citrus fruits and alcohol sees her considered irritants to the bladder. Patient was also encouraged to avoid sexual activity for the next 2 weeks. Patient was also instructed to inform her partner that she has been treated for STDs. No sexual intercourse with partners until they've been treated for 2 weeks as well. Patient was provided with signs and symptoms to return back to emergency department. Patient agrees with discharge instructions treatment regimens and follow-up recommendations. [] Dragon Disclaimer Dragon Disclaimer This electronic medical record was generated, in whole or in part, using a voice recognition dictation system. Departure Departure Impression: Primary Impression: Concern about STD in female without diagnosis Additional Impressions: Urinary tract infection Bacterial vaginosis Disposition: 01 HOME, SELF-CARE Condition: STABLE Referrals: NO PCP (PCP) Patient Instructions: Bacterial Vaginosis, [id number], Sexually Transmitted Disease, Urinary Tract Infection, [id number] Additional Instructions: You have been treated for sexual transmitted infections. However the test results will not be back for 3-4 days. You will be notified for positive results. Avoid sexual [place] for the next 2 weeks. It is recommended that you use condoms whenever you are having sexual intercourse to prevent sexual transmitted infections. Drink plenty of fluids such as water and cranberry juice. Avoid cranberry juice cocktail, caffeine, carbonated beverages, citrus fruits and alcohol seizure considered irritants to the bladder. Follow-up with your primary care physician in the next 7-10 days. Return back to emergency department sign symptoms become worse. Scripts Metronidazole (FLAGYL) 500 Mg Tablet 1 TAB PO BID, #14 TAB Prov: WILLOW DUNHAM FIXED ROUTE BUS OPERATOR 12/07/16 Nitrofurantoin Monohyd/M-Cryst (MACROBID 100 MG CAPSULE) 100 Mg Capsule 1 CAP PO BID, #14 CAP Prov: WILLOW DUNHAM FIXED [employer]TE BUS OPERATOR 12/07/16 Problem Qualifiers WILLOW DUNHAM FIXED [employer]TE [employer] OPERATOR Dec 07, 2016 20:23
[2016-12-07] MEDS ORDERED: METR500T PO (20:28)
[2016-12-07] MEDS ORDERED: AZITHROMYCIN 250 MG TABLET. PO ONE (20:30)
[2016-12-07] MEDS ORDERED: cefTRIAXone IM 250 MG VIAL IM ONE (20:30)
[2016-12-07] MEDS ORDERED: metroNIDAZOLE 500 MG TABLET PO ONE (20:30)
== END 2016-12-07 20:51 | disposition home or self-care (01) ==
LOC: ER 19:22
DX: Z11.3 Encounter for screening for infections with a predominantly sexual mode of transmission (principal); N39.0 Urinary tract infection, site not specified; N76.0 Acute vaginitis; B96.89 Other specified bacterial agents as the cause of diseases classified elsewhere; Z90.49 Acquired absence of other specified parts of digestive tract
CPT/HCPCS: 81001; 81025; 87086; 87186; 87491; 87591; 96372; 99284; J0696; Q0111; Q0144

== ENCOUNTER 2016-12-11 14:09 | Emergency (ER) | payer OTHER ==
[~2016-12-11 14:09] MED LIST changes: +METR500T PO; +NITR100C62 PO
[2016-12-11 14:31] VITALS: BP 140/94
[2016-12-11] MEDS ORDERED: AMOX500C PO (15:23)
--- NOTE | 2016-12-11 15:24 | PHYS DOC ---
Past Medical History Past Medical History: No Pertinent History Additional Past Medical Histor: ULCERATIVE COLITIS, Dental Caries Past Surgical History: Cholecystectomy Additional Past Surgical Histo: X 3 Alcohol Use: None Drug Use: None Adult General Chief Complaint Chief Complaint: TOOTH ACHE OR PAIN [facility] HPI Patient is a 26 year old female presents to the emergency department stating that she is having left lower dental pain and discomfort. Patient states that she has had this pain and discomfort since 07 December. Patient was seen here on that date for an STD check and no mention of dental pain at that time was noted. Patient however was treated that they for STDs. Patient presents today with left lower dental pain and discomfort. She states that she's been taken ibuprofen for the pain and discomfort with no relief. She states that she's been doing the warm salt water mouth rinses when the pain occurs. Patient denies any drainage or discharge denies any foul taste in her mouth. She does state she has a dental appointment on . Review of Systems Review of Systems Constitutional: Denies fever or chills [] Eyes: Denies change in visual acuity, redness, or eye pain [] HENT: Denies nasal congestion or sore throat. Patient complaint of dental pain in the left lower molar area Respiratory: Denies cough or shortness of breath [] Cardiovascular: No additional information not addressed in HPI [] GI: Denies abdominal pain, nausea, vomiting, bloody stools or diarrhea [] : Denies dysuria or hematuria [] Musculoskeletal: Denies back pain or joint pain [] Integument: Denies rash or skin lesions [] Neurologic: Denies headache, focal weakness or sensory changes [] Endocrine: Denies polyuria or polydipsia [] Allergies Allergies Allergies Coded Allergies Type Severity Reaction Last Updated Verified No Known Drug Allergies 09/10/13 No Physical Exam Physical Exam Constitutional: Well developed, well nourished, no acute distress, non-toxic appearance. [] HENT: Normocephalic, atraumatic, bilateral external ears normal, oropharynx moist, no oral exudates, nose normal. Bilateral tympanic membranes appear to be normal. Throat with no erythematous no redness no drainage or discharge noted left lower molar back tooth appears to be decayed down to the gumline that appears to be red and very tender. No drainage or discharge noted from the site. Eyes: PERRLA, EOMI, conjunctiva normal, no discharge. [] Neck: Normal range of motion, no tenderness, supple, no stridor. [] Cardiovascular:Heart rate regular rhythm, no murmur [] Lungs & Thorax: Bilateral breath sounds clear to auscultation [] Skin: Warm, dry, no erythema, no rash. [] Back: No tenderness Extremities: No tenderness, no cyanosis, no clubbing, ROM intact, no edema. [] Neurologic: Alert and oriented X 3, normal motor function, normal sensory function, no focal deficits noted. [] Psychologic: Affect normal, judgement normal, mood normal. [] Current Patient Data Vital Signs Vital Signs Date Time Temp Pulse Resp B/P (MAP) Pulse Ox O2 Delivery O2 Flow Rate FiO2 12/11/16 14:31 98.9 91 18 98 Room Air 98.9 EKG EKG [] Radiology/Procedures Radiology/Procedures [] Course & Med Decision Making Course & Med Decision Making Pertinent Labs and Imaging studies reviewed. (See chart for details) Patient was offered hydrocodone here in the emergency department as she states that she needs to call her mom to come pick her up. Patient is awaiting for her mother to arrive. She'll be provided with a prescription for amoxicillin in which she can take 4 times a day. Also recommended salt water mouth rinses 4-5 times daily. Also recommended that she continue take her Tylenol and ibuprofen for pain and discomfort. Also recommended that she keep her dental appointment which she states she has on . Patient will be discharged home in stable condition signs symptoms to return back to emergency department [] Dragon Disclaimer Dragon Disclaimer This electronic medical record was generated, in whole or in part, using a voice recognition dictation system. Departure Departure Impression: Primary Impression: Pain, dental Additional Impression: Dental abscess Disposition: 01 HOME, SELF-CARE Condition: STABLE Referrals: NO PCP (PCP) Patient Instructions: Dental Abscess, Dental Pain, [id number] Additional Instructions: Patient was instructed to take Tylenol or ibuprofen for pain and discomfort Warm salt water mouth rinses 5 times a day. Antibiotics as prescribed. Follow-up with your dentist in which she state you have an appointment on . Return back to emergency prior signs symptoms of become worse. Scripts Amoxicillin (AMOXICILLIN) 500 Mg Capsule 1 CAP PO BID, #20 CAP Prov: WILLOW DUNHAM APRN 12/11/16 Problem Qualifiers WILLOW DUNHAM APRN Dec 11, 2016 15:24
[2016-12-11] MEDS ORDERED: HYDROcodone/APAP 5/325MG 1 TAB TABLET PO ONE (15:30)
== END 2016-12-11 15:48 | disposition home or self-care (01) ==
LOC: ER 14:09
DX: K04.7 Periapical abscess without sinus (principal); Z90.49 Acquired absence of other specified parts of digestive tract
CPT/HCPCS: 99283

== ENCOUNTER 2017-06-03 12:47 | Emergency (ER) | payer OTHER ==
[~2017-06-03] VITALS: Ht 160 cm; Wt 73.5 kg
[2017-06-03 13:05] VITALS: BP 136/65
--- NOTE | 2017-06-03 13:22 | PHYS DOC ---
Past Medical History Past Medical History: No Pertinent History Additional Past Medical Histor: ULCERATIVE COLITIS, Dental Caries Past Surgical History: Cholecystectomy Additional Past Surgical Histo: X 3 Alcohol Use: None Drug Use: None Adult General Chief Complaint Chief Complaint: FOOT INJURY PAIN HPI HPI Patient is a 26 year old female who presents today complaining of mild pain to the left fifth toe that began 2 weeks ago after she fell off a bunk bed in long term. Review of Systems Review of Systems Constitutional: Denies fever or chills [] Musculoskeletal: mild pain to the left fifth toe Integument: Denies rash or skin lesions [] Neurologic: Denies headache, focal weakness or sensory changes [] All other systems were reviewed and found to be within normal limits, except as documented in this note. Allergies Allergies Allergies Coded Allergies Type Severity Reaction Last Updated Verified No Known Drug Allergies 09/10/13 No Physical Exam Physical Exam Constitutional: Well developed, well nourished, no acute distress, non-toxic appearance. [] Abdomen: Bowel sounds normal, soft, no tenderness, no masses, no pulsatile masses. [] Skin: Warm, dry, no erythema, no rash. [] Back: No tenderness, no CVA tenderness. [] Extremities: Left foot with no obvious deformity. Slight tenderness noted on palpation of the left pinky toe. Full range of motion to the left foot and toes. +2 left pedal pulse. Cap refill less than 2 seconds the left toes. Sensation intact to the left foot. Neurologic: Alert and oriented X 3, normal motor function, normal sensory function, no focal deficits noted. [] Psychologic: Affect normal, judgement normal, mood normal. [] Current Patient Data Vital Signs Vital Signs Date Time Temp Pulse Resp B/P (MAP) Pulse Ox O2 Delivery O2 Flow Rate FiO2 06/03/17 13:05 98.3 98 18 99 Room Air 98.3 EKG EKG [] Radiology/Procedures Radiology/Procedures []PROCEDURE: FOOT LEFT 3V 3 views left foot radiograph 06/03/2017 Clinical indication: Left foot pain. Comparison: None. There is a nondisplaced oblique fracture of the fifth proximal phalanx with intra-articular extension into the fifth MTP articulation. Normal bony alignment. Soft tissues are unremarkable. Impression: Nondisplaced fifth proximal phalanx fracture with intra-articular extension to the MTP articulation. DICTATED and SIGNED BY: SARAH QUINTANILLA MD DATE: 06/03/17 1332 CC: COTY ALFARO APRN; NO PCP; NON,STAFF ~ Course & Med Decision Making Course & Med Decision Making Pertinent Labs and Imaging studies reviewed. (See chart for details) Patient has left foot pain after falling off a bunk bed in residential. Left foot x- rays interpreted by radiologist-Nondisplaced fifth proximal phalanx fracture with intra-articular extension to the MTP articulation. Left fifth toe was marta taped to the fourth toe. Provided orthopedic shoe by the domestic technician, neurovascular exam is intact. Ice elevation encouraged. Follow-up with orthopedic next week. Discharged with ibuprofen. Dragon Disclaimer Dragon Disclaimer This electronic medical record was generated, in whole or in part, using a voice recognition dictation system. Departure Departure Impression: Primary Impression: Toe fracture, left Additional Impression: Fall from height of greater than 3 feet Disposition: 01 HOME, SELF-CARE Condition: STABLE Referrals: NO PCP (PCP) CHARITO WINN MD follow up next week Patient Instructions: Foot Fracture-Brief Additional Instructions: You have left small toe fracture. While the provided orthopedic shoe. Ice elevate the foot. Follow-up with the provided orthopedic doctor by calling the office on Monday. Take the prescribed medicine as needed for pain. Scripts Ibuprofen (IBUPROFEN) 800 Mg Tablet 800 MG PO PRN Q6HRS Y for INFLAMMATION, #20 TAB Prov: COTY ALFARO APRN 06/03/17 Problem Qualifiers Primary Impression: Toe fracture, left Encounter type: initial encounter Toe: lesser toe Fracture type: closed Phalanx: proximal Fracture alignment: nondisplaced Qualified Codes: S92.515A - Nondisplaced fracture of proximal phalanx of left lesser toe(s), initial encounter for closed fracture COTY ALFARO APRN Jun 03, 2017 13:22
--- NOTE | 2017-06-03 13:43 | RAD ---
3 views left foot radiograph 06/03/2017 Clinical indication: Left foot pain. Comparison: None. There is a nondisplaced oblique fracture of the fifth proximal phalanx with intra-articular extension into the fifth MTP articulation. Normal bony alignment. Soft tissues are unremarkable. Impression: Nondisplaced fifth proximal phalanx fracture with intra-articular extension to the MTP articulation.
[2017-06-03] MEDS ORDERED: IBUP-1060 PO (13:54)
== END 2017-06-03 14:00 | disposition home or self-care (01) ==
LOC: ER 12:47
DX: S92.515A Nondisplaced fracture of proximal phalanx of left lesser toe(s), initial encounter for closed fracture (principal); W06.XXXA Fall from bed, initial encounter; Y93.89 Activity, other specified; Y99.8 Other external cause status; Y92.89 Other specified places as the place of occurrence of the external cause
CPT/HCPCS: 73630; 99284-25

== ENCOUNTER 2017-06-22 22:30 | Emergency (ER) | payer OTHER ==
[2017-06-22 23:08] LABS: URINE HCG POC HCG NEGATIVE (Negative)
[2017-06-22 23:08] LABS: ADD MAN DIFF? NO
[2017-06-22 23:13] LABS: BASO % 0 % (0-3); EOS % 0 % (0-3); HEMOGLOBIN 11.5 g/dL (12.0-15.5); LYMPH # 1.2 x10^3/uL (1.0-4.8); LYMPH % 12 % (24-48); MEAN CORPUSCULAR HEMOGLOBIN 27 pg (25-35); MEAN CORPUSCULAR HGB CONC 32 g/dL (31-37); MEAN CORPUSCULAR VOLUME 83 fL (79-100); MONO # 0.6 x10^3/uL (0.0-1.1); MONO % 6 % (0-9); NEUT # 8.1 x10^3uL (1.8-7.7); NEUT % 82 % (31-73); PLATELET COUNT 245 x10^3/uL (140-400); RED BLOOD COUNT 4.33 x10^6/uL (3.50-5.40); RED CELL DISTRIBUTION WIDTH 19.1 % (11.5-14.5); WHITE BLOOD COUNT 9.9 x10^3/uL (4.0-11.0)
[2017-06-22 23:14] LABS: BILIRUBIN,URINE NEGATIVE (NEG); CLARITY,URINE CLEAR; COLOR,URINE YELLOW; GLUCOSE,URINE NEGATIVE (NEG); NITRITE,URINE POSITIVE (NEG); PROTEIN,URINE NEGATIVE (NEG-TRACE); UROBILINOGEN,URINE 0.2 mg/dL (0.2 mg/dL)
[2017-06-22] MEDS: IV NORMAL SALINE 1000ML BAG 1,000 ML IV (23:19)
[2017-06-22] MEDS: KETOROLAC 30 MG/ML INJ. IV (23:19)
[2017-06-22] MEDS: ONDANSETRON PF 4 MG/2 ML VIAL. IV (23:19)
[2017-06-22 23:20] LABS: BACTERIA,URINE MANY /HPF (0-FEW); RBC,URINE 0 /HPF (0-2); SQUAMOUS EPITHELIAL CELL,UR MOD /LPF; WBC,URINE 20-40 /HPF (0-4)
[2017-06-22 23:22] LABS: ANION GAP 13 (6-14); BLOOD UREA NITROGEN 8 mg/dL (7-20); BUN/CREATININE RATIO 10 (6-20); CALCIUM 9.3 mg/dL (8.5-10.1); CARBON DIOXIDE 23 mmol/L (21-32); CHLORIDE 100 mmol/L (98-107); CREATININE 0.8 mg/dL (0.6-1.0); GFR 103.3; GLUCOSE 89 mg/dL (70-99); POTASSIUM 3.5 mmol/L (3.5-5.1); SODIUM 136 mmol/L (136-145)
[2017-06-22 23:28] LABS: ALBUMIN 3.9 g/dL (3.4-5.0); ALBUMIN/GLOBULIN RATIO 0.8 (1.0-1.7); ALK PHOS 74 U/L (46-116); ALT (SGPT) 28 U/L (14-59); AST (SGOT) 20 U/L (15-37); TOTAL BILIRUBIN 0.5 mg/dL (0.2-1.0); TOTAL PROTEIN 8.6 g/dL (6.4-8.2)
[2017-06-22 23:35] LABS: INFLUENZA A PATIENT NEGATIVE (NEGATIVE); INFLUENZA B PATIENT NEGATIVE (NEGATIVE); OBC FLU VALID
[2017-06-22] MEDS: ACETAMINOPHEN 500 MG TABLET PO (23:54)
[2017-06-23] MEDS: IV NORMAL SALINE 1000ML BAG 1,000 ML IV (00:35)
[2017-06-23 05:46] LABS: NEGATIVE OBC STREP NEG; POSITIVE OBC STREP POS
== END 2017-06-23 01:30 | disposition home or self-care (01) ==
LOC: ER 06-23 01:30
DX: N10 Acute pyelonephritis (principal); Z90.49 Acquired absence of other specified parts of digestive tract; Z98.51 Tubal ligation status
CPT/HCPCS: 36415; 80053; 81001; 81025; 85025; 87070; 87086; 87804; 87804-59; 87880; 96361; 96365; 96375; 99285-25; J0690; J1885; J2405; J7030

== ENCOUNTER 2019-05-13 19:07 | Emergency (ER) | payer SELFPAY ==
[~2019-05-13] VITALS: Ht 160 cm; Wt 49.9 kg
[~2019-05-13 19:07] MED LIST changes: +HYDR-3164 PO; -HYDR-971 PO; +IBUP-1060 PO; +LEVO750T31 PO; +ONDA4TAB10 SL; -OXYC-323 PO; +OXYC1TAB15 PO
[2019-05-13] MEDS ORDERED: IV NORMAL SALINE 1000ML BAG 1,000 ML IV SCH (19:39)
[2019-05-13] MEDS ORDERED: ONDANSETRON PF 4 MG/2 ML VIAL. IV ONE (19:45)
[2019-05-13] MEDS ORDERED: HALOPERIDOL LACTATE 5 MG/ML VIAL. IVP ONE (20:00)
[2019-05-13] MEDS ORDERED: HALOPERIDOL LACTATE 5 MG/ML VIAL. IM ONE (20:00)
--- NOTE | 2019-05-13 20:36 | PHYS DOC ---
Past Medical History Past Medical History: Other Additional Past Medical Histor: ULCERATIVE COLITIS Past Surgical History: Cholecystectomy, , Tubal ligation Additional Past Surgical Histo: X 3 Alcohol Use: None Drug Use: Marijuana Adult General Chief Complaint Chief Complaint: ABDOMINAL PAIN HPI HPI Patient is a 28 year old female who presents with states started her menstrual period on Monday began having nausea and vomiting and epigastric "deep pain." Patient states she has not smoked marijuana for the last month. Patient states she was at [facility] 2 days ago and only did was check her urine and nothing else. Patient also complains of right flank pain. Patient rates her pain a 10 out of 10. Review of Systems Review of Systems GI: abdominal pain, nausea, vomiting, denies bloody stools or diarrhea [] All other systems were reviewed and found to be within normal limits, except as documented in this note. Current Medications Current Medications Current Medications Medications (Trade) Dose Ordered Sig/Sharon Start Time Stop Time Status Last Admin Dose Admin Haloperidol Lactate (Haldol Inj) 5 mg 1X ONCE 05/13/19 20:00 05/13/19 20:11 DC 05/13/19 20:02 5 MG Info (CONTRAST GIVEN -- Rx MONITORING) 1 each PRN DAILY PRN 05/13/19 21:00 05/15/19 20:59 Iohexol (Omnipaque 300 Mg/ml) 75 ml 1X ONCE 05/13/19 21:15 05/13/19 21:16 DC Ondansetron HCl (Zofran) 4 mg 1X ONCE 05/13/19 19:45 05/13/19 19:46 DC 05/13/19 20:02 4 MG Potassium Chloride (Klor-Con) 20 meq 1X ONCE 05/13/19 22:00 05/13/19 22:01 DC 05/13/19 22:00 20 MEQ Sodium Chloride 1,000 ml @ 1,000 mls/hr Q1H 05/13/19 19:39 05/13/19 20:38 DC 05/13/19 20:02 1,000 MLS/HR Allergies Allergies Allergies Coded Allergies Type Severity Reaction Last Updated Verified No Known Drug Allergies 09/10/13 No Physical Exam Physical Exam Constitutional: Anxious. Well developed, well nourished, no acute distress, non- toxic appearance. [] HENT: Normocephalic, atraumatic, bilateral external ears normal, oropharynx moist, no oral exudates, nose normal. [] Eyes: PERRLA, EOMI, conjunctiva normal, no discharge. [] Neck: Normal range of motion, no tenderness, supple, no stridor. [] Cardiovascular:Heart rate regular rhythm, no murmur [] Lungs & Thorax: Bilateral breath sounds clear to auscultation [] Abdomen: Bowel sounds normal, soft, epigastric tenderness, no masses, no pulsatile masses. [] Skin: Warm, dry, no erythema, no rash. [] Back: No tenderness, no CVA tenderness. [] Extremities: No tenderness, no cyanosis, no clubbing, ROM intact, no edema. [] Neurologic: Alert and oriented X 3, normal motor function, normal sensory function, no focal deficits noted. [] Psychologic: Affect normal, judgement normal, mood normal. [] Current Patient Data Vital Signs Vital Signs Date Time Temp Pulse Resp B/P (MAP) Pulse Ox O2 Delivery O2 Flow Rate FiO2 05/13/19 22:08 80 122/82 (95) Room Air 05/13/19 21:38 99 05/13/19 19:19 98.1 17 98.1 Lab Values Laboratory Tests Test 05/13/19 20:15 05/13/19 21:15 05/13/19 21:19 White Blood Count 8.1 x10^3/uL (4.0-11.0) Red Blood Count 4.95 x10^6/uL (3.50-5.40) Hemoglobin 11.8 g/dL (12.0-15.5) L Hematocrit 37.7 % (36.0-47.0) Mean Corpuscular Volume 76 fL (79-100) L Mean Corpuscular Hemoglobin 24 pg (25-35) L Mean Corpuscular Hemoglobin Concent 31 g/dL (31-37) Red Cell Distribution Width 20.2 % (11.5-14.5) H Platelet Count 468 x10^3/uL (140-400) H Neutrophils (%) (Auto) 72 % (31-73) Lymphocytes (%) (Auto) 21 % (24-48) L Monocytes (%) (Auto) 6 % (0-9) Eosinophils (%) (Auto) 0 % (0-3) Basophils (%) (Auto) 1 % (0-3) Neutrophils # (Auto) 5.8 x10^3/uL (1.8-7.7) Lymphocytes # (Auto) 1.7 x10^3/uL (1.0-4.8) Monocytes # (Auto) 0.5 x10^3/uL (0.0-1.1) Eosinophils # (Auto) 0.0 x10^3/uL (0.0-0.7) Basophils # (Auto) 0.1 x10^3/uL (0.0-0.2) Platelet Estimate Increased (ADEQUATE) Hypochromasia Slight Anisocytosis Mod Ovalocytes Few Sodium Level 137 mmol/L (136-145) Potassium Level 3.0 mmol/L (3.5-5.1) L Chloride Level 99 mmol/L (98-107) Carbon Dioxide Level 25 mmol/L (21-32) Anion Gap 13 (6-14) Blood Urea Nitrogen 15 mg/dL (7-20) Creatinine 1.2 mg/dL (0.6-1.0) H Estimated GFR (Cockcroft-Gault) 63.8 BUN/Creatinine Ratio 13 (6-20) Glucose Level 106 mg/dL (70-99) H Calcium Level 9.6 mg/dL (8.5-10.1) Total Bilirubin 0.5 mg/dL (0.2-1.0) Aspartate Amino Transferase (AST) 28 U/L (15-37) Alanine Aminotransferase (ALT) 24 U/L (14-59) Alkaline Phosphatase 79 U/L (46-116) Total Protein 9.7 g/dL (6.4-8.2) H Albumin 4.4 g/dL (3.4-5.0) Albumin/Globulin Ratio 0.8 (1.0-1.7) L Lipase 51 U/L (73-393) L Serum Test, Qualitative Negative (NEG) Urine Collection Type U cath Urine Color Yellow Urine Clarity Clear Urine pH 6.5 Urine Specific [place] 1.020 Urine Protein 30 mg/dL (NEG-TRACE) Urine Glucose (UA) Negative mg/dL (NEG) Urine Ketones (Stick) Negative mg/dL (NEG) Urine Blood Negative (NEG) Urine Nitrite Positive (NEG) Urine Bilirubin Negative (NEG) Urine Urobilinogen Dipstick 0.2 mg/dL (0.2 mg/dL) Urine Leukocyte Esterase Small (NEG) Urine RBC 0 /HPF (0-2) Urine WBC 1-4 /HPF (0-4) Urine Squamous Epithelial Cells Mod /LPF Urine Bacteria Many /HPF (0-FEW) Urine Hyaline Casts Moderate /HPF Urine Mucus Mod /LPF Urine Opiates Screen Pos (NEG) Urine Methadone Screen Neg (NEG) Urine Barbiturates Neg (NEG) Urine Phencyclidine Screen Neg (NEG) Urine Amphetamine/Methamphetamine Pos (NEG) Urine Benzodiazepines Screen Pos (NEG) Urine Cocaine Screen Pos (NEG) Urine Cannabinoids Screen Pos (NEG) Urine Ethyl Alcohol Neg (NEG) POC Urine HCG, Qualitative Hcg negative (Negative) Laboratory Tests 05/13/19 20:15 Laboratory Tests 05/13/19 20:15 EKG EKG [] Radiology/Procedures Radiology/Procedures [] Impressions: [facility] [id number] [place] [address] IMAGING REPORT Signed PATIENT: VLAD BOTELLO ACCOUNT: [id number] : 1990 LOCATION: ER AGE: 28 SEX: F EXAM STATUS: REG ER ORD. PHYSICIAN: WILLOW MACKENZIE APRN REASON: ABD PAIN, VOMITING PROCEDURE: CT ABD PELV W/ IV CONTRST ONLY Exam: CT abdomen and pelvis with contrast INDICATION: Abdominal pain TECHNIQUE: Sequential axial images through the abdomen and pelvis obtained following the administration of 75 mL of Omni 300 IV contrast. Sagittal and coronal reformatted images were reconstructed from the axial data and reviewed. Comparisons: None FINDINGS: Heart size is normal. No pericardial effusion. Visualized lung bases are clear. No pleural effusion. Liver, spleen, pancreas, and adrenals are unremarkable. Gallbladder surgically absent. Kidneys demonstrate symmetric enhancement. No perinephric inflammation or hydronephrosis. No renal or ureteral calculi are identified. Bladder is distended and appears thin-walled. Uterus is not enlarged. No abnormal adnexal mass. Large and small bowel are unremarkable. Appendix is not identified. No inflammatory changes in the right lower quadrant to suggest acute appendicitis. No free intra-abdominal air or fluid. No obstruction. Abdominal aorta has a normal course and caliber. Abdominal vasculature is patent. No enlarged intra-abdominal lymph nodes are identified. No suspicious osseous lesions or acute fractures. IMPRESSION: No acute process identified within the abdomen or pelvis. Exposure: One or more of the following in the visualized dose reduction techniques were utilized for this examination: 1. Automated exposure control 2. Adjustment of the MA and/or KV according to patient size 3. Use of iterative of reconstructive technique Electronically signed by: Marquise Knowles MD (05/13/2019 10:19 PM) [id number] DICTATED and SIGNED BY: MARQUISE KNOWLES MD DATE: 05/13/192218 Course & Med Decision Making Course & Med Decision Making Alert and oriented. Very anxious and moving around in the bed holding her stomach and moaning. Epigastric tenderness with palpation but abdomen is soft and otherwise nontender. Skin pink warm and dry.. Vital signs within normal limits. Mucous membranes moist. Right CVA tenderness. No extremity swelling. Ambulatory with a steady gait. Lungs are clear to auscultation all lobes. Heart rate regular without murmur. She denies any vaginal discharge or abnormal vaginal bleeding. Patient denies any diarrhea or constipation, fever, recent illness, blood in her vomit or stool, chest pain, shortness of air, numbness or tingling, weakness, visual changes. Patient has vomited in the emergency room and it is yellow bile. Patient's potassium is 3.0 and I have ordered potassium by mouth for her. After patient was given Haldol 5 IM her pain and vomiting has stopped. Patient has a urinary tract infection. Patient's urine drug screen shows opiates, methamphetamine, and benzo's, marijuana, cocaine. Dragon Disclaimer Dragon Disclaimer This electronic medical record was generated, in whole or in part, using a voice recognition dictation system. Departure Departure Impression: Primary Impression: Cyclical vomiting Additional Impressions: Cocaine abuse Methamphetamine abuse Marijuana abuse Opiate misuse UTI (urinary tract infection) Disposition: 01 HOME, SELF-CARE Condition: STABLE Referrals: NO PCP (PCP) Patient Instructions: Cyclic Vomiting Syndrome, Drug Abuse and Addiction- [facility], Urinary Tract Infection Additional Instructions: Stop doing drugs. Drink plenty of fluids. Take your medications as prescribed. Scripts Cephalexin (KEFLEX) 500 Mg Capsule 1 CAP PO BID for 7 Days, #14 CAP 0 Refills Prov: WILLOW MACKENZIE APRN 05/13/19 Problem Qualifiers Additional Impressions: UTI (urinary tract infection) Urinary tract infection type: site unspecified Hematuria presence: without hematuria Qualified Codes: N39.0 - Urinary tract infection, site not specified WILLOW MACKENZIE CLIENT SERVICE REPRESENTATIVE May 13, 2019 20:36
[2019-05-13 20:38] LABS: BASO # 0.1 x10^3/uL (0.0-0.2); BASO % 1 % (0-3); EOS % 0 % (0-3); HEMATOCRIT 37.7 % (36.0-47.0); HEMOGLOBIN 11.8 g/dL (12.0-15.5); LYMPH # 1.7 x10^3/uL (1.0-4.8); LYMPH % 21 % (24-48); MEAN CORPUSCULAR HEMOGLOBIN 24 pg (25-35); MEAN CORPUSCULAR HGB CONC 31 g/dL (31-37); MEAN CORPUSCULAR VOLUME 76 fL (79-100); MONO # 0.5 x10^3/uL (0.0-1.1); MONO % 6 % (0-9); NEUT # 5.8 x10^3/uL (1.8-7.7); NEUT % 72 % (31-73); PLATELET COUNT 468 x10^3/uL (140-400); RED BLOOD COUNT 4.95 x10^6/uL (3.50-5.40); RED CELL DISTRIBUTION WIDTH 20.2 % (11.5-14.5); WHITE BLOOD COUNT 8.1 x10^3/uL (4.0-11.0)
[2019-05-13 20:51] LABS: CALCIUM 9.6 mg/dL (8.5-10.1); CREATININE 1.2 mg/dL (0.6-1.0); GFR 63.8; PREG TEST PT QUAL NEGATIVE (NEG)
[2019-05-13 20:57] LABS: ALBUMIN 4.4 g/dL (3.4-5.0); ALBUMIN/GLOBULIN RATIO 0.8 (1.0-1.7); TOTAL BILIRUBIN 0.5 mg/dL (0.2-1.0); TOTAL PROTEIN 9.7 g/dL (6.4-8.2)
[2019-05-13] MEDS ORDERED: CONTRAST GIVEN. MC PRN (21:00)
[2019-05-13] MEDS ORDERED: IOHEXOL 300 MG/ML 100ML VIAL. IV ONE (21:15)
[2019-05-13 21:25] LABS: BILIRUBIN,URINE NEGATIVE (NEG); CLARITY,URINE CLEAR; COLOR,URINE YELLOW; NITRITE,URINE POSITIVE (NEG); PH,URINE 6.5; PROTEIN,URINE 30 mg/dL (NEG-TRACE); UROBILINOGEN,URINE 0.2 mg/dL (0.2 mg/dL)
[2019-05-13 21:26] LABS: ANISOCYTOSIS MOD; HYPOCHROMIA SLIGHT; OVALOCYTES FEW; PLT ESTIMATE INCREASED (ADEQUATE)
[2019-05-13 21:31] LABS: AMPHETAMINE/METHAMPHETAMINE POS (NEG); BARBITURATES NEG (NEG); BENZODIAZEPINES POS (NEG); CANNABINOIDS POS (NEG); COCAINE POS (NEG); METHADONE NEG (NEG); OPIATES POS (NEG); PHENCYCLIDINE NEG (NEG)
[2019-05-13 21:32] LABS: SQUAMOUS EPITHELIAL CELL,UR MOD /LPF
[2019-05-13 21:33] LABS: BACTERIA,URINE MANY /HPF (0-FEW); HYALINE CASTS, URINE MODERATE /HPF; RBC,URINE 0 /HPF (0-2)
[2019-05-13] MEDS ORDERED: POTASSIUM CHLORIDE 20 MEQ TABLET.ER. PO ONE (22:00)
--- NOTE | 2019-05-13 22:22 | RAD ---
Exam: CT abdomen and pelvis with contrast INDICATION: Abdominal pain TECHNIQUE: Sequential axial images through the abdomen and pelvis obtained following the administration of 75 mL of Omni 300 IV contrast. Sagittal and coronal reformatted images were reconstructed from the axial data and reviewed. Comparisons: None FINDINGS: Heart size is normal. No pericardial effusion. Visualized lung bases are clear. No pleural effusion. Liver, spleen, pancreas, and adrenals are unremarkable. Gallbladder surgically absent. Kidneys demonstrate symmetric enhancement. No perinephric inflammation or hydronephrosis. No renal or ureteral calculi are identified. Bladder is distended and appears thin-walled. Uterus is not enlarged. No abnormal adnexal mass. Large and small bowel are unremarkable. Appendix is not identified. No inflammatory changes in the right lower quadrant to suggest acute appendicitis. No free intra-abdominal air or fluid. No obstruction. Abdominal aorta has a normal course and caliber. Abdominal vasculature is patent. No enlarged intra-abdominal lymph nodes are identified. No suspicious osseous lesions or acute fractures. IMPRESSION: No acute process identified within the abdomen or pelvis. Exposure: One or more of the following in the visualized dose reduction techniques were utilized for this examination: 1. Automated exposure control 2. Adjustment of the MA and/or KV according to patient size 3. Use of iterative of reconstructive technique Electronically signed by: Marquise Saab MD (05/13/2019 10:19 PM) [id number]
[2019-05-13] MEDS ORDERED: CEPH-264 PO (22:28)
[2019-05-13 22:38] VITALS: BP 108/73
== END 2019-05-13 22:45 | disposition home or self-care (01) ==
LOC: ER 19:07
DX: R11.15 Cyclical vomiting syndrome unrelated to migraine (principal); F12.10 Cannabis abuse, uncomplicated; F14.10 Cocaine abuse, uncomplicated; N39.0 Urinary tract infection, site not specified; F11.90 Opioid use, unspecified, uncomplicated; Z90.49 Acquired absence of other specified parts of digestive tract; Z98.890 Other specified postprocedural states; Z98.51 Tubal ligation status; K51.90 Ulcerative colitis, unspecified, without complications
CPT/HCPCS: 36415; 74177; 80053; 80307; 81001; 81025; 83690; 84703; 85025; 87086; 96361; 96372; 96374; 99285; J1630; J2405; J7030; 87186